=== PATIENT | male | born 1965 | race Caucasian/White ===

== ENCOUNTER 2019-04-08 07:01 | Inpatient (IN) ==
--- NOTE | 2019-03-13 15:45 | PAT Medication Instructions ---
Medication Instructions Date of Service March 13, 2019 Home Medications celecoxib 200 mg capsule 200 mg PO BID 02/21/19 [History Confirmed 03/05/19] acetaminophen 1,000 mg PO Q8H PRN 03/05/19 [History Confirmed 03/05/19] bupropion HCl [Wellbutrin XL] 150 mg PO BID 03/05/19 [History Confirmed 03/05/19] kueeslqj-edq-gvwrj-vit K-lycop [Men's Multivitamin] 1 tab PO HS omega 0-xku-vga-fish oil [Fish Oil] 1 cap PO HS 03/05/19 [History Confirmed 03/05/19] sildenafil 40 mg PO UD PRN 03/05/19 [History Confirmed 03/05/19] tadalafil [Cialis] 7.5 mg PO DAILY PRN 03/05/19 [History Confirmed 03/05/19] tramadol 50 mg PO TID PRN 03/05/19 [History Confirmed 03/05/19] ASK your surgeon for instructions celecoxib 200 mg capsule 200 mg PO BID 02/21/19 [History Confirmed 03/05/19] STOP taking 2 weeks before surgery (or as soon as possible if surgery is within 2 weeks) omega 7-ogw-zik-fish oil [Fish Oil] 1 cap PO HS 03/05/19 [History Confirmed 03/05/19] DO NOT take the morning of surgery sildenafil 40 mg PO UD PRN 03/05/19 [History Confirmed 03/05/19] tadalafil [Cialis] 7.5 mg PO DAILY PRN 03/05/19 [History Confirmed 03/05/19] Take morning of surgery With a small sip of water, OTHERWISE NOTHING TO EAT OR DRINK AFTER MIDNIGHT: acetaminophen 1,000 mg PO Q8H PRN (okay to take up to 4 hours prior to surgery if needed) bupropion HCl [Wellbutrin XL] 150 mg PO BID 03/05/19 [History Confirmed 03/05/19] tramadol 50 mg PO TID PRN (okay to take up to 4 hours prior to surgery if needed) Take evening before surgery acetaminophen 1,000 mg PO Q8H PRN (if needed) bupropion HCl [Wellbutrin XL] 150 mg PO BID 03/05/19 [History Confirmed 03/05/19] ksknjnop-xbj-vbgmv-vit K-lycop [Men's Multivitamin] 1 tab PO HS sildenafil (pulm.hypertension) 40 mg PO UD PRN (if needed) tadalafil [Cialis] 7.5 mg PO DAILY PRN (if needed) tramadol 50 mg PO TID PRN (if needed) Other Notes If you have any questions please call us at [phone] or [phone] or [phone] or [phone]
--- NOTE | 2019-03-14 10:26 | Anesthesiology Consultation ---
Date of Service March 14, 2019 Assessment & Plan (1) Encounter for pre-operative examination: - Awaiting review preop testing (labs, EKG, CXR). - Awaiting surgeon-ordered PCP preop evaluation scheduled 03/19 (Dr. Shayne Longoria). Chart Review Chart Review: Patient seen in Pre Admission Testing Teaching & Discussion Pre-Anesthesia Teaching/Discussion Notes: Instructed NPO after midnight before surgery,except medications with 15 cc of water. Medication instructions provided according to the PAT guidelines. History Surgery Operation Date: 04/08/19 12:00 Proposed Procedures p Right Anterior Total Hip Arthroplasty - Remberto Villatoro DO Height/Weight Height: 5 ft 9 in Weight: 115.8 kg Allergies Allergy/AdvReac Type Severity Reaction Status Date / Time No Known Allergies Allergy Verified 03/05/19 08:57 Medications Home Medications Medication Instructions Recorded Confirmed Last Taken celecoxib 200 mg capsule 200 mg PO BID 02/21/19 03/05/19 Unknown acetaminophen 1,000 mg PO Q8H PRN 03/05/19 03/05/19 Unknown bupropion HCl [Wellbutrin XL] 150 mg PO BID 03/05/19 03/05/19 Unknown sxzcxivj-ffi-drwxm-vit K-lycop 1 tab PO HS 03/05/19 03/05/19 Unknown [Men's Multivitamin] omega 7-bzq-ras-fish oil [Fish Oil] 1 cap PO HS 03/05/19 03/05/19 Unknown tadalafil [Cialis] 7.5 mg PO DAILY PRN 03/05/19 03/05/19 Unknown tramadol 50 mg PO TID PRN 03/05/19 03/05/19 Unknown sildenafil 1 tab PO UD PRN 03/13/19 03/13/19 Unknown Past Medical History Medical History Bulging disc cervical Gout Kidney calculi Obesity SYEDA (obstructive sleep apnea) CPAP Osteoarthritis Exercise / Class Metabolic Activity II 4-5 Yardwork/Stairs/Walk up hill (one flight of stairs (no chest pain/no sob), uses cane PRN increasing hip pain) Past Family History Family History Father Family hx of colon cancer Past Surgical History Surgical History History of colonoscopy History of cystoscopy MULTIPLE History of knee surgery RT KNEE BONE CHIP REPAIR History of lithotripsy MULTIPLE [place] teeth removed Past Anesthesia History No Hx of Anesthesia Complications and No Family Hx of Anesthesia Complications History of PONV No Hx of PONV and No Hx of Motion Sickness Social History Smoking Status: Never smoker Do You Dip or Chew Tobacco: No Hx Alcohol Use: Yes Alcohol type: beer, wine and hard liquor alcohol intake frequency: a few times a week Hx Substance Use: No substance use type: does not use Review of Systems Patient denies chest pain, shortness of breath, dyspnea on exertion, cough, wheezing, palpitations. Physical Exam Vital Signs VITALS BP 137/84 P 60 TEMP 98.2 SP02 97%RA RESP 16 PHYSICAL Full neck and c-spine range of motion. Full TMJ range of motion. TMD 3.5 finger breaths Mallampati Score 2 Dentition: intact, several crowns Lungs: clear throughout to auscultation Cardiac: regular rate and rhythm, no murmurs noted Spine: normal Carotid arteries: negative bruit Extremities: no edema
--- NOTE | 2019-03-14 12:03 | XRay Report ---
XR chest Pre-admission PA/Lat CLINICAL HISTORY: Preoperative chest COMPARISON STUDY: No previous studies for comparison. FINDINGS: The heart is at the upper limits of normal in size. There is no failure. There is no focal pulmonary consolidation. There are no pleural effusions. Degenerative changes are present within the dorsal spine with ankylosis.[ IMPRESSION: No active disease in the chest. Electronically signed by: Vijay Zarco M.D. 03/14/2019 12:01 PM
[2019-03-14 12:41] LABS: Basophils # (auto) 0.01 K/uL (0-0.2); Basophils % (auto) 0.2 %; Eosinophils # (auto) 0.08 K/uL (0-0.5); Eosinophils % (auto) 1.6 %; Hematocrit (blood only) 43.3 % (42-52); Hemoglobin 14.5 g/dL (14.0-18.0); Immature Granulocytes # (auto) 0.01 K/uL (0.00-0.02); Immature Granulocytes % (auto) 0.2 %; Lymphocytes # (auto) 1.31 K/uL (1.2-3.4); Lymphocytes % (auto) 26.8 %; Mean Corpuscular Hemoglobin 31.9 pg (25-34); Mean Corpuscular Hgb Conc 33.5 g/dL (32-36); Mean Corpuscular Volume 95.4 fL (80-100); Mean Platelet Volume 10.1 fL (7.4-10.4); Monocytes # (auto) 0.38 K/uL (0.11-0.59); Monocytes % (auto) 7.8 %; Neutrophils % (auto) 63.4 %; Platelet Count 244 K/uL (130-400); RDW Coefficient of Variation 13.6 % (11.5-14.5); RDW Standard Deviation 47.2 fL (36.4-46.3); Red Blood Count 4.54 M/uL (4.7-6.1); White Blood Count 4.89 K/uL (4.8-10.8)
[2019-03-14 13:02] LABS: Partial Thromboplastin Time 27.3 Seconds (21.0-31.0); Prothrombin Time 10.3 Seconds (9.0-12.0)
[2019-03-14 13:04] LABS: BUN Creatinine Ratio 20.5 (10-20); Calcium 9.1 mg/dl (8.5-10.1); Creatinine Clr Calc Pharmacy 132.3 ml/min; Est GFR (African American) 117.8; Est GFR (Non-African American) 101.7; Potassium 3.7 mmol/L (3.5-5.1)
[2019-03-14 13:05] LABS: Appearance Urine Clear (Clear); Bacteria Urine Automated Negative (Negative); Bilirubin Urine Negative (Negative); Blood Urine 1+ (Negative); Cast Urine Automated 0 /lpf (0-5); Color Urine Yellow; Epithelial Cell Urine Auto 0-5 /lpf (0-5); Glucose Urine UA Negative (Negative); Ketones Urine Negative (Negative); Leukocyte Esterase Urine Negative (Negative); Nitrite Urine Negative (Negative); Protein Urine Negative (Negative); Urobilinogen Urine Negative (Negative); pH Urine 6.5 (4.5-7.5)
--- NOTE | 2019-03-27 08:38 | Consultation Report ---
DATE OF CONSULTATION: 04/08/2019 A 53-year-old male scheduled to undergo right total hip arthroplasty with an anterior approach on 04/08/2019. HISTORY OF PRESENT ILLNESS: The patient is with severe osteoarthritis. Progressive disease. Multiple joints involved. The first procedure recommended was a right total hip arthroplasty. This is scheduled as noted above. Otherwise, his medical problems include: 1. Obstructive sleep apnea. This has been diagnosed back in 2005. He does use a CPAP. He recently had a repeat sleep study. He needs a pressure of 9 cm of water. 2. Nephrolithiasis. He has had multiple episodes over the years. He has had multiple lithotripsy procedures. 3. He has a history of vasectomy many years ago. SOCIAL HISTORY: He is . This is his second marriage. He has 3 children from his first marriage. He never smoked. He does drink beer maybe twice a week, not excessively. Occasional wine. No drugs. No excessive coffee, tea or soft drinks. He is a registered nurse. FAMILY HISTORY: His mother is 87, has severe dementia. Father of colon cancer. He has 6 siblings. History is significant for colonic polyps. Children doing well. No history of any prostate cancer. ALLERGIES: None. CURRENT MEDICATIONS: Include: 1. Celebrex 200 mg daily. 2. Tramadol 50 mg tablets, which she takes on occasion for pain. 3. Sildenafil 20 mg tablets that he uses for his erectile dysfunction. REVIEW OF SYSTEMS: Denies any headache or dizziness or lightheadedness. No earache, sore throat or neck pain. Denied any chest pain, pressure or tightness. No shortness of breath. No cough. No abdominal pain. No nausea, no vomiting. No problem with his bowel movements. No problem urinating. He does have pain in his back and joints related to his osteoarthritis. PHYSICAL EXAMINATION: GENERAL: Well developed, in no distress. Weight 252 pounds, height 68 inches. VITAL SIGNS: Blood pressure 130/82, pulse 60, temperature 98.2. SKIN: Warm and dry without any rash. HEENT: Trifocal correction. No mucosal abnormalities noted. NECK: Supple without adenopathy or thyromegaly. No JVD. Normal carotid pulses. No carotid bruit. CHEST: Normal. HEART: Regular heart sounds. No murmur, rub or gallop. LUNGS: Clear. Normal breath sounds. ABDOMEN: Soft, nontender without organomegaly or masses. BACK: No spinal tenderness. EXTREMITIES: Osteoarthritic changes. No edema, no clubbing, no cyanosis. Good pulses. He does have a callus on the lateral aspect of his right foot. NEUROLOGIC: He is alert and oriented without deficit. DIAGNOSTIC DATA: Preoperative testing including chest x-ray which was normal. His electrocardiogram was normal except for minimal sinus bradycardia at 58 beats per minute. LABORATORY DATA: His blood type was O positive. CBC was normal. PT and PTT were normal. His PRP was all completely unremarkable. His urinalysis showed 1+ blood, 10-30 rbc's. Negative leukocyte esterase. The microhematuria is thought to be related to his nephrolithiasis. ASSESSMENT: 1. Preoperative evaluation. The patient is scheduled to undergo a right total hip arthroplasty with an anterior approach. 2. Nephrolithiasis. 3. Obstructive sleep apnea. 4. Obesity. PLAN: 1. He will continue the same medications. 2. All his laboratory tests were reviewed. 3. The patient should be able to undergo his anticipated surgery without any problem. I do not see any contraindication. DUNIA
--- NOTE | 2019-04-07 12:48 | History & Physical Report ---
Date of Service April 07, 2019 Assessment & Plan (1) Degenerative joint disease of right hip: I have indicated the patient for right anterior total hip replacement. The risks, benefits and complications of surgery were explained to the patient which include but not limited to infection, acute blood loss, DVT/PE, injury to nerves, vessels, bone, soft tissue, arthrofibrosis, chronic pain, failure of the prosthesis, hip dislocation, leg length discrepancy, need for additional surgery, cardiac and pulmonary events and . The patient wished to proceed with surgery and informed consent was obtained at this time. We will plan for ASA BID post-operatively for DVT prophylaxis. Upon discharge the patient will be discharged home with home health services. Appropriate clearances by PCP were obtained. History of Present Illness Chief Complaint: Right hip pain/djd Primary Care Provider: Alejandro Grover MD The patient is a 53 year old male who presents with complaints of severe right hip pain and DJD. The patient has failed outpatient conservative treatments to this point which included NSAIDs, IA corticosteroid injection of the hip, home exercise/walking program. The patient's pain and limited function have progressed to the point where they severely hinder their activities of daily living and they no longer tolerate exercise programs. They are requesting to proceed with total hip replacement surgery. Allergies Allergy/AdvReac Type Severity Reaction Status Date / Time No Known Allergies Allergy Verified 03/05/19 08:57 Home Medications Home Medications Medication Instructions Recorded Confirmed Type celecoxib 200 mg capsule 200 mg PO BID 02/21/19 03/05/19 History acetaminophen 1,000 mg PO Q8H PRN 03/05/19 03/05/19 History bupropion HCl [Wellbutrin XL] 150 mg PO BID 03/05/19 03/05/19 History mgbciafe-swa-bnchf-vit K-lycop 1 tab PO HS 03/05/19 03/05/19 History [Men's Multivitamin] omega 7-jfa-lye-fish oil [Fish Oil] 1 cap PO HS 03/05/19 03/05/19 History tadalafil [Cialis] 7.5 mg PO DAILY PRN 03/05/19 03/05/19 History tramadol 50 mg PO TID PRN 03/05/19 03/05/19 History sildenafil 1 tab PO UD PRN 03/13/19 03/13/19 History CPAP Machine #1 ea 03/21/19 Rx Past Med/Surg History Medical History Bulging disc cervical Gout Kidney calculi Obesity SYEDA (obstructive sleep apnea) CPAP Osteoarthritis Surgical History History of colonoscopy History of cystoscopy MULTIPLE History of knee surgery RT KNEE BONE CHIP REPAIR History of lithotripsy MULTIPLE [place] teeth removed Family History Father Family hx of colon cancer Social History Preferred Language: Citizen Of [place] Communication Ability: Effective Finish Cleaner Required: No Beliefs That Will Affect Care: None Current Living Situation: Spouse Other Information That Helps Us Care for You: No Feels Safe at Home: Yes Safety Concerns: Feels Safe At This Time Smoking Status: Never smoker Do You Dip or Chew Tobacco: No ; Second Hand Exposure: No ; Tobacco Cessation Education Requested by Patient: No Hx Alcohol Use: Yes Alcohol type: beer, wine and hard liquor Hx Substance Use: No Review of Systems Review of Systems: All systems reviewed & are unremarkable except as noted in HPI & below Constitutional: as per Subjective / HPI Physical Exam Physical Exam: RLE NVSI +EHL/FHL/TA/GS SILT grossly, +2 DP pulse, compartments soft NT, limited painful ROM of the hip, antalgic gait. Constitutional: WD/WN, vitals as above Eyes: PERRL, conjunctivae normal, anicteric sclerae ENMT: external ear and nose normal, oropharynx normal Neck: trachea midline, no thyromegaly Respiratory: normal respiratory effort, lungs clear to auscultation Cardiovascular: RRR, no murmur, no edema Gastrointestinal (Abdomen): normal bowel sounds, soft, nontender, no hepatosplenomegaly Musculoskeletal: no cyanosis or clubbing, extremities motor strength 5/5 Skin: no rashes, warm and dry Neurologic: patellar DTR's 2+ bilat, sensation intact Psychiatric: A+Ox3, euthymic affect Lymphatic: no cervical or axillary lymphadenopathy Results & Data Diagnostic Findings Multiple views of the hip demonstrates severe DJD with complete loss of the joint space. +osteophytes, +sclerosis, +subchondral cysts.
[~2019-04-08 07:01] MED LIST: ACETAMINOPHEN 500 MG TAB PO SCH; BUPIVACAINE 0.5 % 5 MG/1 ML PF 10ML VIAL ONE; CEFAZOLIN 2000MG 2,000 MG/15 ML SYR IV SCH; CeleBREX 200 MG CAP PO SCH; DEXAMETHASONE SOD INJ 4 MG/ML VIAL ONE; FAMOTIDINE 20 MG TAB PO SCH; GABAPENTIN 900 MG DOSE PO SCH; LR 15ML/HR IV SCH; METOCLOPRAMIDE HCL 10 MG TABLET PO SCH; MIDAZOLAM HCL 1 MG/ML 2ML VIAL ONE; ONDANSETRON INJ 2 MG/ML 2 ML VIAL ONE; PROPOFOL IV EMULSION 10 MG/ML 20 ML VIAL IV ONE; ROPIVACAINE 0.5% HCL/PF 150 MG, BUPIVACAINE 0.5% MPF 30 ML, EPINEPHrine 30MG/30ML (OR U... INSTIL SCH; TRANEXAMIC ACID 1,000 MG **IV Intra-op IV SCH; TRANEXAMIC ACID 1,000 MG **IV Pre-op IV SCH; dexAMETHasone 4 MG TAB PO SCH; fentaNYL citrate 100 MCG/2 ML VIAL ONE
--- NOTE | 2019-04-08 07:32 | History & Physical Bridge Note ---
Date of Service April 08, 2019 History & Physical Bridge Note I have examined the patient, reviewed the History & Physical and in the interval since the performance of the History & Physical I have noted the following changes of clinical significance: no changes noted
[2019-04-08] MEDS ORDERED: BACITRACIN INJ 50,000 UNIT VIAL ONE (09:28)
[2019-04-08] MEDS ORDERED: ORTHO JOINT ANESTHETIC ONE (09:28)
[2019-04-08] MEDS ORDERED: ePHEDrine sulfate 50 MG/ML AMP IV PRN (11:05)
[2019-04-08] MEDS ORDERED: ATROPINE SULFATE 0.1 MG/ML 10ML SYR IV PRN (11:05)
[2019-04-08] MEDS ORDERED: PROPOFOL IV EMULSION 10 MG/ML 20 ML VIAL IV ONE ×3 (11:27→12:38)
[2019-04-08] MEDS ORDERED: TRANEXAMIC ACID / 0.7% NACL 1000MG/100ML BAG IV ONE (12:49)
--- NOTE | 2019-04-08 12:56 | Post Operative Brief Note ---
Immediate Post Op Note v1 Date of Surgery April 08, 2019 Pre & Post Diagnosis Operation Date: 04/08/19 09:30 Pre-Op Diagnosis: Unilateral Primary Osteoarthritis, Right Hip Post-Op Diagnosis: Unilateral Primary Osteoarthritis, Right Hip I identified the patient and participated in the time-out.: Yes Procedure Operation Date: 04/08/19 09:30 Actual Procedures p Right Anterior Total Hip Arthroplasty(Right) - Remberto Villatoro DO Surgeon Remberto Villatoro DO Pencil Maker Vito Oneil Estimated Blood Loss 125 Findings Consistent with Post-Op Diagnosis Fluids 1400 cc LR Specimens femoral head Anesthesia Type Spinal MAC Complications none Disposition Disposition: Recovery Room Overlapping Procedure I was present for: the critical portions of procedure. I was immediately available: during the entire case. Back up surgeon: was not required during procedure.
--- NOTE | 2019-04-08 13:02 | Operative Report ---
Post Operative Report Pre & Post Diagnosis Operation Date: 04/08/19 09:30 Pre-Op Diagnosis: Unilateral Primary Osteoarthritis, Right Hip Post-Op Diagnosis: Unilateral Primary Osteoarthritis, Right Hip I identified the patient and participated in the time-out.: Yes Procedure Operation Date: 04/08/19 09:30 Actual Procedures p Right Anterior Total Hip Arthroplasty(Right) - Remberto Villatoro DO Surgeon Remberto Villatoro DO Burnisher [employer] Bumper Vito Oneil Estimated Blood Loss 125 Findings Consistent with Post-Op Diagnosis Fluids 1400 cc LR Specimens Femoral head Anesthesia Type Spinal MAC Complications none Disposition Disposition: Recovery Room Indications The patient is a 53-year-old male who presents with severe progressive right hip DJD who has failed outpatient conservative treatments. I indicated the patient for a total hip replacement and the risks and benefits were explained in detail which included but not limited to infection, bleeding, blood clot, damage to surrounding bone, nerves, vessels, soft tissue, hip dislocation, failure of the prosthesis, leg length discrepancy, need for additional surgery and . The patient agreed to proceed with replacement of the hip and informed consent was obtained. Appropriate clearances were obtained. Description of Procedure COMPONENTS USED: [employer] hip system: Acetabulum size 54, femur size 6 standard offset, femoral head 36-3, liner [id number], acetabular screw 25 mm x 1. DESCRIPTION OF PROCEDURE: Following satisfactory spinal anesthesia, the patient was placed supine on the OR table. The left leg was placed in the well leg [place] and the right leg in the traction device. The right leg was prepared with ChloraPrep and draped sterilely. A surgical timeout was performed, patient identified and site jonnathan verified. Appropriate antibiotics were given. A standard anterior approach in the interval between the sartorius and tensor muscles was performed. Dissection was carried down through subcutaneous tissues. Electrocautery was utilized for hemostasis. Circumflex femoral vessels were identified, tied and ligated. The anterior capsular fat pad was removed and the capsulotomy was performed revealing the arthritic femoral neck and head. A femoral neck cut was made with reciprocating saw and the bone fragments removed. The acetabular self-retraining retractor was placed. Acetabular reaming was completed under fluoroscopic guidance, a 54 shell was impacted into an anatomic position and secured with a dome screw. Local ane sthetic was placed and following irrigation, the polyethylene liner was placed. The femur was placed into position of external rotation, extension and adduction. Femoral canal was prepared up to the size 6 standard offset. Trial reduction with a -3 neck length head showed good soft tissue tension, leg lengths restored, and good fit and fill of the proximal canal using fluoroscopic landmarks. The hip was dislocated. The trial component was removed. The final implant was placed. The hip was irrigated with sterile saline solution and reduced. A Betadine soak was performed. After 3 minutes, the hip was once more irrigated with copious sterile saline solution with bacitracin. Bhavya-incisional soft tissue was injected utilizing [place] [employer] which includes a combination of Ropivicaine 0.5% 150mg, Bupivicaine 0.5%/Epinephrine 1:200,000 30ml, Toradol 30mg, Dexamethasone 4mg, Ketamine 10mg, Clonidine 100mcg and NSS 30ml solution. The capsule was then closed with 1-0 Vicryl interrupted figure of eight sutures. The fascia was closed with a running suture of #1 Vicryl, the subcutaneous tissues with 2-0 Vicryl and the skin with a running subcuticular stitch of 3-0 V-Loc. Dermabond prineo and a dry dressing were applied. The patient tolerated the procedure well and was transported to PACU in stable condition. Due to the complex nature of the procedure, the entire surgery was performed with the operational assistance of Vito Oneil PA-C. The front office assistant, under direct supervision, was involved in the actual performance of all aspects of the surgical procedure including patient positioning, hemostasis, tissue retraction, instrument management and wound closure. I attest to the content of the Intraoperative Record and any orders documented therein. Any exceptions are noted below.
--- NOTE | 2019-04-08 13:03 | Fluoroscopy Report ---
FL hip RT 1V CLINICAL HISTORY: RT ANTERIOR TOTAL COMPARISON STUDY: None. FLUOROSCOPY TIME: 53 seconds. FLUOROSCOPIC IMAGES: 2 FINDINGS: These images demonstrate anatomic alignment of the total right hip arthroplasty. There are no unexpected radiopaque foreign bodies. Acetabular screw is noted. Hardware is intact. No fracture i s visualized by fluoroscopy. IMPRESSION: Expected findings following total right hip arthroplasty. Electronically signed by: Rex Marshall M.D. 04/08/2019 1:01 PM
--- NOTE | 2019-04-08 13:55 | Anesthesiology Progress Note ---
Date of Service April 08, 2019 Anesthesia Post Procedure Vital Signs Vital Signs: Temp Pulse Pulse Resp BP Pulse Ox 04/08/19 13:40 62 16 108/65 96 04/08/19 13:30 74 19 112/66 99 04/08/19 13:22 36.8 C 64 15 115/71 98 04/08/19 07:45 36.8 C 79 18 149/88 H 98 Transfer of Care Handoff Completed per policy Notes Mental Status: alert / awake / arousable and participated in evaluation Patient Amnestic to Procedure: Yes Nausea / Vomiting: adequately controlled Pain: adequately controlled Airway Patency, RR, SpO2: stable & adequate BP & HR: stable & adequate Hydration State: stable & adequate Neuraxial Anesthesia: was administered and sensory block is resolving Anesthetic Complications: no major complications apparent
--- NOTE | 2019-04-08 14:10 | XRay Report ---
XR hip 1V RT w pelvis CLINICAL HISTORY: IN PACU - A/P PELVIS and LATERAL HIP COMPARISON: None. DISCUSSION: Anatomic alignment posttotal right hip arthroplasty. Could contact between prosthetic and underlying bone. Expected postoperative soft tissue changes IMPRESSION: Anatomic alignment posttotal right hip arthroplasty. The above report was generated using voice recognition software. It may contain grammatical, syntax or spelling errors. Electronically signed by: Otf Mckeon M.D. 04/08/2019 2:08 PM
[2019-04-08] MEDS ORDERED: bisacodyL 10 MG SUPP PR PRN (14:16)
[2019-04-08] MEDS ORDERED: HYDROmorphone INJ 0.5 MG/0.5 ML SYR IV PRN (14:16)
[2019-04-08] MEDS ORDERED: MAGNESIUM HYDROXIDE SUSP 30 ML UDC PO PRN (14:16)
[2019-04-08] MEDS ORDERED: SODIUM CHLORIDE 0.9% 1000ML 1,000 ML IV SCH (14:16)
[2019-04-08] MEDS ORDERED: ONDANSETRON INJ 2 MG/ML 2 ML VIAL IV PRN (14:16)
[2019-04-08] MEDS ORDERED: METOCLOPRAMIDE HCL INJ 5 MG/ML 2 ML VIAL IV PRN (14:16)
[2019-04-08] MEDS ORDERED: NALOXONE HCL 0.4 MG/1 ML VIAL/CARP IV PRN (14:16)
[2019-04-08] MEDS: KETOROLAC TROMETHAMINE 15 MG/ML VIAL IV SCH ×2 (15:15→21:21)
[2019-04-08] MEDS: ACETAMINOPHEN 500 MG TAB PO SCH ×2 (15:15→21:18)
[2019-04-08] MEDS: OXYCODONE HCL IR 5 MG TAB (IMMEDIATE RELEASE) PO PRN ×2 (15:53→23:50)
--- NOTE | 2019-04-08 18:35 | Orthopedic Progress Note ---
Date of Service April 08, 2019 Assessment & Plan (1) Degenerative joint disease of right hip: s/p R anterior DAVID -ancef x 24 -DVT ppx: SCDs, TEDs, ASA BID -WBAT RLE -PT/OT -PO XR demonstrates a well aligned well fixed prothesis without fracture dislocation -am labs -DC planning Subjective Post Operative Progress Note Patient seen sitting up in bed, comfortable, denies complaints, pain well controlled, no acute issues. Review of Systems Review of Systems: All systems reviewed & are unremarkable except as noted in HPI & below Constitutional: as per Subjective / HPI Physical Exam Physical Exam: RLE NVSI +EHL/FHL/TA/GS SILT grossly, +2 DP pulse, compartments soft NT, dressing cdi. Constitutional: WD/WN, vitals as above Results & Data Vital Signs (Past 12 Hours) Vital Signs Temp Pulse Pulse Resp BP BP Pulse Ox 04/08/19 17:21 36.5 C 81 18 132/72 97 04/08/19 16:05 37.0 C 83 18 162/82 H 98 04/08/19 15:05 37.0 C 77 18 147/77 H 96 04/08/19 14:36 36.3 C L 67 18 122/80 98 04/08/19 14:05 36.5 C 68 18 129/80 97 04/08/19 13:50 36.5 C 62 17 146/95 H 98 04/08/19 13:40 62 16 108/65 96 04/08/19 13:30 74 19 112/66 99 04/08/19 13:22 36.8 C 64 15 115/71 98 04/08/19 07:45 36.8 C 79 18 149/88 H 98
[2019-04-08] MEDS: CEFAZOLIN 2000MG 2,000 MG/15 ML SYR IV SCH (18:47)
[2019-04-08] MEDS ORDERED: SENNA 8.6 MG TAB PO SCH (21:00)
[2019-04-08] MEDS: BuPROPion SR 150 MG TABCR PO SCH (21:18)
[2019-04-08] MEDS: DOCUSATE SODIUM 100 MG CAP PO SCH (21:18)
[2019-04-09] MEDS: KETOROLAC TROMETHAMINE 15 MG/ML VIAL IV SCH ×2 (02:54→08:44)
[2019-04-09] MEDS: CEFAZOLIN 2000MG 2,000 MG/15 ML SYR IV SCH (02:54)
[2019-04-09 05:19] LABS: Hematocrit (blood only) 37.3 % (42-52); Hemoglobin 12.6 g/dL (14.0-18.0); Immature Granulocytes # (auto) 0.02 K/uL (0.00-0.02); Immature Granulocytes % (auto) 0.2 %; Lymphocytes # (auto) 0.72 K/uL (1.2-3.4); Mean Corpuscular Hemoglobin 31.7 pg (25-34); Mean Corpuscular Hgb Conc 33.8 g/dL (32-36); Mean Corpuscular Volume 93.7 fL (80-100); Mean Platelet Volume 10.2 fL (7.4-10.4); Monocytes # (auto) 0.81 K/uL (0.11-0.59); Monocytes % (auto) 7.9 %; Neutrophils # (auto) 8.72 K/uL (1.4-6.5); Neutrophils % (auto) 84.9 %; Platelet Count 231 K/uL (130-400); RDW Coefficient of Variation 12.8 % (11.5-14.5); RDW Standard Deviation 43.9 fL (36.4-46.3); Red Blood Count 3.98 M/uL (4.7-6.1); White Blood Count 10.27 K/uL (4.8-10.8)
[2019-04-09 05:42] LABS: BUN Creatinine Ratio 24.2 (10-20); Calcium 8.3 mg/dl (8.5-10.1); Creatinine Clr Calc Pharmacy 114.5 ml/min; Est GFR (African American) 106.2; Est GFR (Non-African American) 91.7; Potassium 3.8 mmol/L (3.5-5.1)
[2019-04-09] MEDS: ACETAMINOPHEN 500 MG TAB PO SCH (05:44)
--- NOTE | 2019-04-09 07:49 | Orthopedic Progress Note ---
Date of Service April 09, 2019 Assessment & Plan (1) Degenerative joint disease of right hip: s/p R anterior DAVID POD#1 -ancef x 24 -DVT ppx: SCDs, TEDs, ASA BID -WBAT RLE -PT/OT -PO XR demonstrates a well aligned well fixed prothesis without fracture dislocation -am labs: hgb 12.6 -DC planning home with HH Subjective Post Operative Progress Note Patient seen sitting up in bed, comfortable, denies complaints, pain well controlled, no acute issues. Denies F/C/N/V/SOP/CP Review of Systems Review of Systems: All systems reviewed & are unremarkable except as noted in HPI & below Constitutional: as per Subjective / HPI Physical Exam Physical Exam: RLE NVSI +EHL/FHL/TA/GS SILT grossly, +2 DP pulse, compartments soft NT, dressing cdi. Constitutional: WD/WN, vitals as above Results & Data Vital Signs (Past 12 Hours) Vital Signs Temp Pulse Resp BP BP Pulse Ox 04/09/19 02:55 36.4 C L 68 16 127/56 L 97 04/08/19 23:01 37.1 C 76 16 125/75 96 Laboratory Results 04/09/19 04/09/19 Range/Units 04:46 04:46 WBC 10.27 (4.8-10.8) K/uL RBC 3.98 L (4.7-6.1) M/uL Hgb 12.6 L (14.0-18.0) g/dL Hct 37.3 L (42-52) % MCV 93.7 (80-100) fL MCH 31.7 (25-34) pg MCHC 33.8 (32-36) g/dL RDW Std Deviation 43.9 (36.4-46.3) fL RDW Coeff of Estiven 12.8 (11.5-14.5) % Plt Count 231 (130-400) K/uL MPV 10.2 (7.4-10.4) fL Immature Gran % (Auto) 0.2 % Neut % (Auto) 84.9 % Lymph % (Auto) 7.0 % [place] % (Auto) 7.9 % Eos % (Auto) 0.0 % Baso % (Auto) 0.0 % Immature Gran # (Auto) 0.02 (0.00-0.02) K/uL Neut # (Auto) 8.72 H (1.4-6.5) K/uL Lymph # (Auto) 0.72 L (1.2-3.4) K/uL [place] # (Auto) 0.81 H (0.11-0.59) K/uL Eos # (Auto) 0.00 (0-0.5) K/uL Baso # (Auto) 0.00 (0-0.2) K/uL Sodium 137 (136-145) mmol/L Potassium 3.8 (3.5-5.1) mmol/L Chloride 104 (98-107) mmol/L Carbon Dioxide 29 (21-32) mmol/L Anion Gap 4.0 (3-11) BUN 23 H (7-18) mg/dl Creatinine 0.95 (0.6-1.4) mg/dl Est Cr Clr Drug Dosing 114.5 ml/min Est GFR ( Amer) 106.2 Est GFR (Non-Af Amer) 91.7 BUN/Creatinine Ratio 24.2 H (10-20) Glucose 189 H (70-99) mg/dl Calcium 8.3 L (8.5-10.1) mg/dl
--- NOTE | 2019-04-09 08:15 | Anesthesiology Progress Note ---
Date of Service April 09, 2019 Anesthesia Post Procedure Vital Signs Vital Signs: Temp Pulse Pulse Resp BP BP Pulse Ox 04/09/19 08:05 36.8 C 66 12 146/87 H 99 04/09/19 02:55 36.4 C L 68 16 127/56 L 97 04/08/19 23:01 37.1 C 76 16 125/75 96 04/08/19 17:21 36.5 C 81 18 132/72 97 04/08/19 16:05 37.0 C 83 18 162/82 H 98 04/08/19 15:05 37.0 C 77 18 147/77 H 96 04/08/19 14:36 36.3 C L 67 18 122/80 98 04/08/19 14:05 36.5 C 68 18 129/80 97 04/08/19 13:50 36.5 C 62 17 146/95 H 98 04/08/19 13:40 62 16 108/65 96 04/08/19 13:30 74 19 112/66 99 04/08/19 13:22 36.8 C 64 15 115/71 98 Pain Intensity Right Hip: Pain Intensity: 6 Notes Mental Status: alert / awake / arousable and participated in evaluation Patient Amnestic to Procedure: Yes Nausea / Vomiting: adequately controlled Pain: adequately controlled Airway Patency, RR, SpO2: stable & adequate BP & HR: stable & adequate Hydration State: stable & adequate Neuraxial Anesthesia: was administered and sensory block resolved Anesthetic Complications: no major complications apparent
[2019-04-09] MEDS: DOCUSATE SODIUM 100 MG CAP PO SCH (08:32)
[2019-04-09] MEDS: BuPROPion SR 150 MG TABCR PO SCH (08:33)
[2019-04-09] MEDS: OXYCODONE HCL IR 5 MG TAB (IMMEDIATE RELEASE) PO PRN (08:47)
[2019-04-09] MEDS ORDERED: MULTIVITAMIN TAB PO SCH (09:00)
[2019-04-09] MEDS ORDERED: ASPIRIN 325 MG ECTAB PO SCH (09:00)
[2019-04-09] MEDS ORDERED: CeleBREX 200 MG CAP PO SCH ×2 (10:00→14:00)
--- NOTE | 2019-04-10 21:28 | Discharge Summary ---
Date of Service April 10, 2019 Admission HPI Per Admitting Provider The patient is a 53 year old male who presents with complaints of severe right hip pain and DJD. The patient has failed outpatient conservative treatments to this point which included NSAIDs, IA corticosteroid injection of the hip, home exercise/walking program. The patient's pain and limited function have progressed to the point where they severely hinder their activities of daily living and they no longer tolerate exercise programs. They are requesting to proceed with total hip replacement surgery. Principal Diagnosis Right anterior total hip replacement Discharge Exam RLE NVSI +EHL/FHL/TA/GS SILT grossly, +2 DP pulse, compartments soft NT, dressing cdi. Constitutional WD/WN, vitals as above Discharge Data Allergies Allergy/AdvReac Type Severity Reaction Status Date / Time No Known Allergies Allergy Verified 04/08/19 07:41 Consultations 04/09/19 08:00 Consult Case Management - Discharge Planning Routine Procedures Performed Operation Date: 04/08/19 09:30 Actual Procedures p Right Anterior Total Hip Arthroplasty(Right) - Remberto Villatoro DO Ordered Studies 04/08/19 09:30 FL fluoroscopy <1hr Routine FL hip RT 1V Routine Hospital Course (1) Degenerative joint disease of right hip: The patient is a 53 -year-old male who presents with long standing history of severe right hip DJD and failed outpatient conservative treatments. The patient's symptoms have progressed to the point where it has been difficult to perform even normal activities of daily living. I indicated the patient for a right anterior total hip arthroplasty, the risks, benefits and complications of the procedure include but not limited to infection, bleeding, damage to bone, nerves, vessels, surrounding soft tissue, may develop blood clots, loss of function, leg length discrepancy, dislocation, failure of the components, loosening of the components, the need for additional surgery and . The patient wished to proceed with surgery at this time and informed consent was obtained. Hospital Course: On 04/08/19 the patient was taken to the operating room, adequate anesthesia administered and underwent a right anterior total hip arthroplasty. The patient tolerated the procedure well and was taken to the PACU in stable condition. Post-operatively the patient was started on a DVT ppx medication and given appropriate IV antibiotics. Consults were placed to physical therapy, occupational therapy and case management. On POD#1, the patient did well overnight and their pain was well controlled. Labs were drawn and the Hgb was 12.6. The patient progressed well with PT. Dressings were changed at this time and the incision was clean, dry and intact. The patients hospital stay was relatively uneventful and they were deemed stable by the orthopedic team and consultants to be discharged home with HH on 04/09/19. Discharge Instructions: Upon discharge the patient may weight bear as tolerates through their operative extremity. They were instructed to keep the incision clean and dry at all times. The patient may shower but should not submerge the incision, avoid bathing, pools and hot tubes. The patient was given a script for pain medication and should take as instructed. The patient was given a script for DVT ppx 325mg ASA BID and should take as directed. The patient was instructed to not drive or travel for long distances until cleared to do so. If the patient develops any symptoms of fevers, chills, nausea, vomiting, increased redness, swelling, pain or drainage from the surgical site, they should notify the office and/or proceed to the nearest emergency room. The patient should follow up in 10-14 days after surgery for their routine post-operative follow-up appointment and should call the office to confirm the date and time. s/p R anterior DAVID POD#1 -ancef x 24 -DVT ppx: SCDs, TEDs, ASA BID -WBAT RLE -PT/OT -PO XR demonstrates a well aligned well fixed prothesis without fracture dislocation -am labs: hgb 12.6 -DC planning home with Total Time Total Time Spent Total Time Spent (In Minutes): 30 minutes Discharge Plan Discharge Items Patient Disposition: Home - Home Health Services Reason For Visit: Unilateral Primary Osteoarthritis, Right Hip Discharge Diagnosis: Right anterior total hip replacement Condition on Discharge: Good Activity: Per Instructions section Lifting: Wait until after follow-up appointment Bathing: Keep incision dry Bathing Comment: No bathing, pools or hot tubs. Sexual Activity: Wait until after follow-up appointment Exercise/Sports: Wait until after follow-up appointment Driving/Machine Use: No driving Weightbearing: Full weightbearing Non-emergency contact: Primary Care Provider and Surgeon Call non-emergency contact if: you have any medication questions, your symptoms worsen, your pain is not controlled, your pain is worsening, your pain is unusual for you, your pain is concerning for you, you have a fever, your temperature is above 101, your wound has increased redness, your wound has increased drainage and your wound pain has increased Follow-up/Referrals: Alejandro Grover MD [Primary Care Provider] - Diet: Regular Addtl Attending Provider Instructions: ACTIVITY RECOMMENDATIONS: SELF CARE INSTRUCTIONS AFTER TOTAL HIP REPLACEMENT : Direct Anterior Approach Until the incision and soft tissues around your hip have healed, there is a possibility that the hip prosthesis could dislocate. A. Hip flexion ( Up & Down out of chair or steps ) may be difficult. This is normal. B. Numbness in front of the thigh is also normal for a few weeks. C. Use hand rails when walking on stairs. D. Wear low heeled shoes with non-slip soles. E. Be sure that your floors are free of things that could trip you - throw rugs, electrical cords, small objects. Avoid wet and waxed floors, especially with crutches and canes. F. Try to walk several times a day with rest periods between. G. Continue with all the exercises taught to you in the hospital. Again, make walking a part of your daily routine. SPECIAL CARE INSTRUCTIONS: VERY IMPORTANT TO READ AND REVIEW A. You may still be at risk for phlebitis and blood clots. 1. Wear surgical stockings (DARWIN hose) for 2 weeks after surgery to improve circulation and reduce swelling. 2. Take Aspirin 325mg twice daily for 4 weeks or as directed by your doctor. This is your blood thinner. 3. High risk patients may be prescribed a stronger blood thinner if necessary. 4. If you are on Coumadin normally, your family doctor/caregiver assisted living should monitor your blood work. Expect a phone call the day of or the day after bloodwork is drawn to adjust your dosage. B. You must take antibiotics before having dental work, bladder, bowel and other surgery. Your doctor will provide you with a permanent card to carry describing precautions. C. Call [facility] if you have a fever, redness or swelling around the incision, cloudy drainage from incision, or sudden increase in pain in your hip, not relieved by your regular pain medication. D. Please call the office at if you have any concerns or questions about your operation or recovery. * YOU MAY SHOWER, NO TUB BATHS UNTIL CLEARED BY YOUR DOCTOR. - Keep an extra close eye on the top portion of your incision. Be sure to keep clean & dry. * WEAR DARWIN HOSE 20 HOURS PER DAY FOR 2 WEEKS. * YOU MAY PROGRESS FROM A WALKER, TO A CANE, TO INDEPENDENT AT YOUR OWN PACE. * MOST PATIENTS WILL HAVE HOME NURSING FOR THERAPY. IF YOU DECIDE TO DO OUTPATIENT PHYSICAL THERAPY, PLEASE SCHEDULE THIS 3 TIMES PER WEEK. * DERMABOND Prineo- This is a mesh tape dressing that is covered with glue. It should remain in place until the incision is properly healed, usually 10-14 days. This dressing is designed to naturally slough off. You may trim the excess mesh tape as it peels off. Incision may be briefly wet in a shower. Dry immediately by blotting with a clean, dry towel. Do not bath or swim until instructed by your doctor. Do not scratch, rub, or pick at the dressing. Do not apply any topical ointments or lotions until dressing is completely removed and/or instructed by your doctor. There may be a small piece of suture material at one end of your incision. Do not pull or trim this. If it is bothersome or catching on clothing, you may cover it with a band-aid. FOLLOW UP VISIT: If appointment is not already scheduled: Please call [facility] to make a follow-up appointment for 2 weeks after your surgery at . Pending Studies at Discharge: No Stand-Alone Forms: [facility], Smoking Cessation Medications and DC Order Prescriptions: New celecoxib [Celebrex] 200 mg Capsule 200 mg PO BID PRN (Reason: pain) Qty: 28 RF: 0 acetaminophen [Tylenol Extra Strength] 500 mg Tablet 1,000 mg PO Q8 PRN (Reason: pain) Qty: 90 RF: 0 aspirin 325 mg Tablet,Delayed Release (Dr/Ec) 325 mg PO BID 28 Days Qty: 56 RF: 0 oxycodone 5 mg Tablet 5 mg PO Q6H MDD 6 tabs PRN (Reason: pain) Qty: 30 RF: 0 sennosides [Senokot] 8.6 mg Tablet 17.2 mg PO HS PRN (Reason: constipation) Qty: 28 RF: 0 Continued (DME) CPAP Machine Misc See Rx Instructions .ROUTE .MEDSUPPLY Qty: 1 RF: 0 omega 9-uld-hpo-fish oil [Fish Oil] 1,000 mg (120 mg-180 mg) Capsule 1 cap PO HS RF: 0 tadalafil [Cialis] 5 mg tablet 7.5 mg PO DAILY PRN (Reason: NEEDED) RF: 0 Men's Multivitamin 400-20-300 mcg tablet 1 tab PO HS RF: 0 sildenafil 1 tab PO UD PRN (Reason: Erectile Dysfunction) RF: 0 bupropion HCl 150 mg tablet sustained-release 12 hr 150 mg PO BID RF: 0 Discontinued celecoxib [Celebrex] 200 mg capsule 200 mg PO BID RF: 0 tramadol 50 mg Tablet 50 mg PO TID PRN (Reason: Pain) RF: 0 acetaminophen 500 mg Tablet 1,000 mg PO Q8H PRN (Reason: Pain) RF: 0 Discharge Orders: Discharge Order (Routine); Ordered 04/09/19 Ordered By: Remberto Wilson/Other Patient Handouts: Surgery Prevent DVT After Admission Data Admit Date/Time: 04/08/19 13:26 Attending Provider: Remberto Villatoro Admit Provider: Remberto Villatoro Primary Care Provider: Alejandro Grover Other Interventions: Discharge Summary Assessment (RN) Last Done: 04/09/19 09:26 DC Date/Time DO NOT enter until pt leaves facility: 04/09/19 12:03
== END 2019-04-09 12:03 | disposition home health service (06) | DRG 470 ==
LOC: ASU 07:01 → 3E 13:26

== ENCOUNTER 2020-04-07 07:42 | Inpatient (IN) ==
--- NOTE | 2020-03-20 16:09 | PAT Medication Instructions ---
Medication Instructions Date of Service March 20, 2020 Home Medications Medication Instructions Recorded CPAP Machine #1 ea 03/21/19 acetaminophen [Tylenol Extra 1,000 mg PO Q8 PRN #90 tab 04/08/19 Strength] celecoxib [Celebrex] 200 mg PO BID PRN #28 cap 04/08/19 sennosides [Senokot] 17.2 mg PO HS PRN #28 tab 04/08/19 acetaminophen [Tylenol Extra Strength] 1,000 mg PO Q8 PRN celecoxib [Celebrex] 200 mg PO BID PRN sennosides [Senokot] 17.2 mg PO HS PRN tadalafil 20 mg tablet 20 mg PO DAILY PRN clonidine HCl 0.1 mg PO HS methylphenidate HCl [Concerta] 36 mg PO QAM multivitamin 1 tab PO DAILY ASK your surgeon for instructions celecoxib [Celebrex] 200 mg PO BID PRN DO NOT take the morning of surgery tadalafil 20 mg tablet 20 mg PO DAILY PRN methylphenidate HCl [Concerta] 36 mg PO QAM multivitamin 1 tab PO DAILY Take morning of surgery With a small sip of water, OTHERWISE NOTHING TO EAT OR DRINK AFTER MIDNIGHT: acetaminophen [Tylenol Extra Strength] 1,000 mg PO Q8 PRN (okay to take up to 4 hours prior to surgery if needed) Take evening before surgery acetaminophen [Tylenol Extra Strength] 1,000 mg PO Q8 PRN (if needed) sennosides [Senokot] 17.2 mg PO HS PRN (if needed) tadalafil 20 mg tablet 20 mg PO DAILY PRN (if needed) clonidine HCl 0.1 mg PO HS Other Notes If you have any questions please call us at [phone] or [phone] or [phone] or [phone]
--- NOTE | 2020-03-23 16:01 | Anesthesiology Consultation ---
Date of Service March 23, 2020 Assessment & Plan (1) Encounter for pre-operative examination: - Per assessment on 03/23: Travel screen negative. No known COVID-19 positive contacts or current COVID-19 related symptoms. 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 Both use PPE and get routine work COVID testing (most recent negative). Surgeon arranging preop COVID testing. Awaiting results. - S/P Right DAVID: 04/08/19: SAB x 1 attempt at L3-L4 at [facility] - Adult onset ADHD: Patient states he was told not to discontinue Concerta prior to surgery. He states he will check with his ADD provider (sees a specialist) to confirm what they would recommend for preop medication instructions. Reviewed with Dr. Bart zepeda to continue perioperatively if provider recommends this. Anesthesia will need to check with patient AM DOS regarding whether or not Concerta taken. Chart Review Chart Review: Acceptable Risk for Surgery (pending surgeon-ordered PCP clearance) and Patient seen in Pre Admission Testing Teaching & Discussion Pre-Anesthesia Teaching/Discussion Notes: Instructed NPO after midnight before surgery,except medications with 15 cc of water. Medication instructions provided according to the PAT guidelines. History Surgery Operation Date: 04/07/20 12:35 Proposed Procedures p Bilateral Total Knee Arthroplasty - Remberto Villatoro DO Height/Weight Height: 5 ft 8.5 in Weight: 117.7 kg Allergies Allergy/AdvReac Type Severity Reaction Status Date / Time No Known Allergies Allergy Verified 03/20/20 15:12 Medications Home Medications Medication Instructions Recorded Confirmed Last Taken CPAP Machine #1 ea 03/21/19 07/11/19 Unknown acetaminophen [Tylenol Extra 1,000 mg PO Q8 PRN #90 tab 04/08/19 03/20/20 Unknown Strength] celecoxib [Celebrex] 200 mg PO BID PRN #28 cap 04/08/19 03/20/20 Unknown sennosides [Senokot] 17.2 mg PO HS PRN #28 tab 04/08/19 03/20/20 Unknown tadalafil 20 mg tablet 20 mg PO DAILY PRN 07/11/19 03/20/20 Unknown clonidine HCl 0.1 mg PO HS 03/20/20 03/20/20 Unknown methylphenidate HCl [Concerta] 36 mg PO QAM 03/20/20 03/20/20 Unknown multivitamin 1 tab PO DAILY 03/20/20 03/20/20 Unknown Past Medical History Medical History Attention deficit disorder (ADD) Bulging disc cervical History of kidney stones Hx of gout Obesity SYEDA (obstructive sleep apnea) CPAP Osteoarthritis Past Family History Family History Father Colorectal cancer Mother Dementia Breast cancer Other No family history of adverse response to anesthesia Past Surgical History Surgical History History of colonoscopy History of cystoscopy multiple History of knee surgery right knee bone chip repair History of lithotripsy multiple History of total hip arthroplasty Right DAVID: 04/08/19: SAB x 1 attempt at L3-L4 at [facility] [place] teeth removed Social History Smoking Status: Never smoker Do You Dip or Chew Tobacco: No Hx Alcohol Use: Yes Alcohol type: beer and wine alcohol intake frequency: a few times a week Hx Substance Use: No substance use type: does not use Review of Systems Patient denies chest pain, shortness of breath, dyspnea on exertion, joint pain, reflux, cough, wheezing, palpitations. Physical Exam Vital Signs VITALS BP 134/79 P 79 TEMP 98.2 SP02 100%RA RESP 16 PHYSICAL Full neck and c-spine range of motion. Full TMJ range of motion. TMD 2 finger breaths Mallampati Score 3 Dentition: intact, + several crowns Lungs: clear throughout to auscultation Cardiac: regular rate and rhythm, no murmurs noted Spine: normal Carotid arteries: negative bruit Extremities: no edema Testing Laboratory Results 03/23/20 16:20 03/23/20 16:20 PT 10.7 Seconds (9.0-12.0) 03/23/20 16:20 INR 1.0 (0.9-1.1) 03/23/20 16:20 APTT 28.1 Seconds (21.0-31.0) 03/23/20 16:20 Hemoglobin A1c 5.6 % (4.5-5.6) 03/23/20 16:20 Urine Color Yellow 03/23/20 16:20 Urine Appearance Clear (Clear) 03/23/20 16:20 Urine pH 6.5 (4.5-7.5) 03/23/20 16:20 Ur Specific Marcus 1.023 (1.000-1.030) 03/23/20 16:20 Urine Protein Negative (Negative) 03/23/20 16:20 Urine Glucose (UA) Negative (Negative) 03/23/20 16:20 Urine Ketones Negative (Negative) 03/23/20 16:20 Urine Nitrite Negative (Negative) 03/23/20 16:20 Ur Leukocyte Esterase Negative (Negative) 03/23/20 16:20 Blood Type O Positive 03/23/20 16:20 Antibody Screen NEGATIVE 03/23/20 16:20 Low WBC. Will forward preop labs to PCP for continuity of care* Electrocardiogram Date: 02/10/20 SR with arrhythmia at 81bpm. LAD. Chest X-Ray Date: 03/23/20 FINDINGS: PA and lateral chest radiographs are compared to study dated 03/14/2019. The heart is enlarged. The pulmonary vasculature is noncongested. There is mild bibasilar atelectasis. The lungs and pleural spaces are otherwise clear. There is no pneumothorax. The bony thorax appears intact. Degenerative change is seen in the thoracic spine. IMPRESSION: Mild cardiac enlargement with no active disease in the chest.
[2020-03-23 16:43] LABS: Appearance Urine Clear (Clear); Bilirubin Urine Negative (Negative); Blood Urine Negative (Negative); Color Urine Yellow; Glucose Urine UA Negative (Negative); Ketones Urine Negative (Negative); Leukocyte Esterase Urine Negative (Negative); Nitrite Urine Negative (Negative); Protein Urine Negative (Negative); Specific Gravity Urine 1.023 (1.000-1.030); Urobilinogen Urine Negative (Negative); pH Urine 6.5 (4.5-7.5)
[2020-03-23 16:54] LABS: Partial Thromboplastin Time 28.1 Seconds (21.0-31.0); Prothrombin Time 10.7 Seconds (9.0-12.0)
[2020-03-23 16:58] LABS: Basophils # (auto) 0.01 K/uL (0-0.2); Basophils % (auto) 0.2 %; Eosinophils # (auto) 0.11 K/uL (0-0.5); Eosinophils % (auto) 2.4 %; Hematocrit (blood only) 41.9 % (42-52); Hemoglobin 13.5 g/dL (14.0-18.0); Lymphocytes # (auto) 1.03 K/uL (1.2-3.4); Lymphocytes % (auto) 22.8 %; Mean Corpuscular Hemoglobin 31.2 pg (25-34); Mean Corpuscular Hgb Conc 32.2 g/dL (32-36); Mean Corpuscular Volume 96.8 fL (80-100); Mean Platelet Volume 10.2 fL (7.4-10.4); Monocytes # (auto) 0.23 K/uL (0.11-0.59); Monocytes % (auto) 5.1 %; Neutrophils # (auto) 3.13 K/uL (1.4-6.5); Neutrophils % (auto) 69.5 %; Platelet Count 265 K/uL (130-400); RDW Coefficient of Variation 13.8 % (11.5-14.5); RDW Standard Deviation 49.2 fL (36.4-46.3); Red Blood Count 4.33 M/uL (4.7-6.1); White Blood Count 4.51 K/uL (4.8-10.8)
[2020-03-23 17:05] LABS: Albumin Level 3.9 gm/dl (3.4-5.0); BUN Creatinine Ratio 30.3 (10-20); Calcium 8.7 mg/dl (8.5-10.1); Creatinine Clr Calc Pharmacy 138.1 ml/min; Est GFR (African American) 120.1; Est GFR (Non-African American) 103.6; Potassium 3.7 mmol/L (3.5-5.1)
--- NOTE | 2020-03-23 18:55 | XRay Report ---
TWO VIEW CHEST CLINICAL HISTORY: Preoperative examination. FINDINGS: PA and lateral chest radiographs are compared to study dated 03/14/2019. The heart is enlar ged. The pulmonary vasculature is noncongested. There is mild bibasilar atelectasis. The lungs and pl eural spaces are otherwise clear. There is no pneumothorax. The bony thorax appears intact. Degenerat nikkie change is seen in the thoracic spine. IMPRESSION: Mild cardiac enlargement with no active disease in the chest. ACT 112: Negative or not required by law. Electronically signed by: Trung Hernandez M.D. 03/23/2020 6:53 PM
[2020-03-24 06:04] LABS: Estimated Average Glucose 114 mg/dl; Hemoglobin A1C 5.6 % (4.5-5.6)
--- NOTE | 2020-04-03 15:02 | History and Physical Report ---
DATE OF ADMISSION: 04/07/2020 A 54-year-old male scheduled to undergo bilateral total knee arthroplasties next week for severe osteoarthritis. MEDICAL PROBLEMS: Include: 1. Nephrolithiasis. The patient recently underwent 2 procedures for internal lithotripsy. The procedure was well tolerated, both of them. Done under general anesthesia. 2. Osteoarthritis. 3. History of right total hip arthroplasty 03/2019. 4. Obstructive sleep apnea. 5. Attention deficit disorder. 6. Known rotator cuff of the left shoulder. CURRENT MEDICATIONS: Include: 1. Concerta ER 36 mg daily. 2. Clonidine 0.1 mg at bedtime. 3. Multivitamin 1 daily. The patient has known severe osteoarthritis of both knees. The pain has been persistent. He had been treated in the past with anti-inflammatory medications, unfortunately without adequate control of his symptomatology. Surgery was recommended and he is scheduled to be done next week. Past medical history all as noted above. In addition, he had a vasectomy many years ago. SOCIAL HISTORY: He is . He has 3 children from his first marriage. He never smoked. Occasional beer. No use of any illicit drugs. He is a registered nurse. FAMILY HISTORY: His mother is 88, she is living. Has dementia and macular degeneration. His father at age 46, had colon cancer. He has multiple siblings. Many of them had a knee replacement. ALLERGIES: None. CURRENT MEDICATIONS: All as noted above. REVIEW OF SYSTEMS: He is doing quite well. He has no history of any cardiac or pulmonary or renal disease. He denied any headache, dizziness or lightheadedness. No earache, sore throat or neck pain. No chest pain, pressure or tightness. No shortness of breath. No exertional symptomatology. No abdominal pain, no nausea, no vomiting. His flank pain has resolved since he had his lithotripsies. He does complain of joint pain in his knees related to his osteoarthritis. No ankle edema. PHYSICAL EXAMINATION: GENERAL: Well developed, in no distress. Weight 255 pounds, height 68 inches, BMI 38.77. VITAL SIGNS: Blood pressure 154/82 initially, then it was rechecked about 10 minutes later and it was down to 138/84, pulse 68 and regular, temperature 98.4. SKIN: Warm and dry without any rash. HEENT: He does have a trifocal correction for his vision. No mucosal abnormalities in his nose, mouth or throat. Ears were normal. NECK: Supple, nontender without adenopathy or thyromegaly. No JVD. Normal carotid pulses. No carotid bruits. CHEST: Normal. HEART: Regular heart sounds without any murmur, rub or gallop. LUNGS: Clear. Normal breath sounds. ABDOMEN: Obese, soft, nontender, without organomegaly or masses. BACK: No spinal tenderness. EXTREMITIES: Scar, right hip from prior surgeries. Osteoarthritis of multiple joints especially the knees. Good pedal pulses. NEUROLOGIC: He is alert and oriented without lateralized deficits. PREOPERATIVE TESTING: Includes: 1. Chest x-ray showed what is described as mild cardiac enlargement, but without any active disease of the chest. His blood type was O positive with negative antibody screen. His urine culture was negative. CBC showed a WBC count of 4510, hemoglobin 13.5, hematocrit 41.9, platelet count 265,000. Prothrombin time 10.7, INR 1.0, PTT 28.1. His chemistry showed a sodium of 142, potassium 3.7, chloride 110, CO2 of 30, BUN 23, creatinine 0.77, glucose 100, calcium 8.7, albumin 3.9. His hemoglobin A1c was 5.6%. His urinalysis was normal. His electrocardiogram showed a regular sinus rhythm without any significant abnormalities. ASSESSMENT: 1. Osteoarthritis. 2. Preoperative examination. The patient is scheduled to undergo bilateral total knee arthroplasties. 3. Obstructive sleep apnea. 4. Lithotripsy, bilateral. 5. Nephrolithiasis, status post 2 lithotripsy procedures. 6. Attention deficit disorder. 7. Obstructive sleep apnea. 8. Obesity. PLAN: The patient was evaluated. All his laboratory tests were reviewed. He is in a stable medical condition. There is no evidence of contraindication for his anticipated surgery. The patient just had 2 lithotripsy procedures under general anesthesia, which were well tolerated. He will continue taking his medications. DUNIA
--- NOTE | 2020-04-06 22:10 | History & Physical Report ---
Date of Service April 06, 2020 Assessment & Plan (1) Degenerative joint disease of knee, right: (2) Degenerative joint disease of left knee: I have indicated the patient for bilateral total knee replacement. The risks, benefits and complications of surgery were explained to the patient which include but not limited to infection, acute blood loss, DVT/PE, injury to nerves, vessels, bone, soft tissue, arthrofibrosis, chronic pain, failure of the prosthesis, knee dislocation, leg length discrepancy, need for additional surgery, cardiac and pulmonary events and . The patient wished to proceed with surgery and informed consent was obtained at this time. We will plan for Lovenox post-operatively for DVT prophylaxis. Upon discharge the patient will be discharged home with home health services vs rehab. Appropriate clearances by PCP were obtained. History of Present Illness Chief Complaint: Bilateral knee DJD/pain Primary Care Provider: Alejandro Longoria MD The patient is a 54 year old male who presents with complaints of severe bilateral knee pain and DJD. The patient has failed outpatient conservative treatments to this point which included NSAIDs, IA corticosteroid injections, MAZARIEGOS injections, PT and a home exercise/walking program. The patient's pain and limited function have progressed to the point where they severely hinder their activities of daily living and they no longer tolerate exercise programs. They are requesting to proceed with bilateral total knee replacement surgery. Allergies Allergy/AdvReac Type Severity Reaction Status Date / Time No Known Allergies Allergy Verified 04/07/20 07:59 Home Medications Medication Instructions Recorded Confirmed Type CPAP Machine #1 ea 03/21/19 07/11/19 Rx acetaminophen [Tylenol Extra 1,000 mg PO Q8 PRN #90 tab 04/08/19 04/07/20 Rx Strength] celecoxib [Celebrex] 200 mg PO BID PRN #28 cap 04/08/19 04/07/20 Rx sennosides [Senokot] 17.2 mg PO HS PRN #28 tab 04/08/19 04/07/20 Rx tadalafil 20 mg tablet 20 mg PO DAILY PRN 07/11/19 04/07/20 History clonidine HCl 0.1 mg PO HS 03/20/20 04/07/20 History methylphenidate HCl [Concerta] 36 mg PO QAM 03/20/20 04/07/20 History multivitamin 1 tab PO DAILY 03/20/20 04/07/20 History Past Med/Surg History Medical History Attention deficit disorder (ADD) Bulging disc cervical History of kidney stones Hx of gout Obesity SYEDA (obstructive sleep apnea) CPAP Osteoarthritis Surgical History History of colonoscopy History of cystoscopy multiple History of knee surgery right knee bone chip repair History of lithotripsy multiple History of total hip arthroplasty Right DAVID: 04/08/19: SAB x 1 attempt at L3-L4 at [facility] [place] teeth removed Family History Father Colorectal cancer Mother Dementia Breast cancer Other No family history of adverse response to anesthesia Social History Smoking Status: Never smoker Second Hand Exposure: No; Do You Dip or Chew Tobacco: No; Tobacco Cessation Education Requested by Patient: No Hx Alcohol Use: Yes Alcohol type: beer and wine Hx Substance Use: No Preferred Language: Indonesian Communication Ability: Effective Boiler Fireman Required: No Beliefs That Will Affect Care: None marital status: Current Living Situation: Spouse Feels Safe at Home: Yes Safety Concerns: Feels Safe At This Time Assistive Devices: CPAP and Glasses Review of Systems Review of Systems: All systems reviewed & are unremarkable except as noted in HPI & below Constitutional: as per Subjective / HPI Physical Exam Physical Exam: LLE NVSI +EHL/FHL/TA/GS SILT grossly, +2 DP pulse, compartments soft NT, painful ROM 0-105 degrees of flexion, +creptius. RLE NVSI +EHL/FHL/TA/GS SILT grossly, +2 DP pulse, compartments soft NT, painful ROM 0-110 degrees of flexion, +crepitus. Constitutional: WD/WN, vitals as above Eyes: PERRL, conjunctivae normal, anicteric sclerae ENMT: external ear and nose normal, oropharynx normal Neck: trachea midline, no thyromegaly Respiratory: normal respiratory effort, lungs clear to auscultation Cardiovascular: RRR, no murmur, no edema Gastrointestinal (Abdomen): normal bowel sounds, soft, nontender, no hepatosplenomegaly Musculoskeletal: no cyanosis or clubbing, extremities motor strength 5/5 Skin: no rashes, warm and dry Neurologic: patellar DTR's 2+ bilat, sensation intact Psychiatric: A+Ox3, euthymic affect Lymphatic: no cervical or axillary lymphadenopathy Results & Data Results & Data ([facility]) Diagnostic Findings Multiple views of the right knee demonstrates severe tricompartmental DJD with complete loss of the medial joint space. +osteophytes, +sclerosis, +subchondral cysts. Multiple views of the left knee demonstrates severe tricompartmental DJD with complete loss of the medial joint space. +osteophytes, +sclerosis, +subchondral cysts. Pre Admission Testing Addendum Laboratory Results 03/23/20 16:20 03/23/20 16:20 PT 10.7 Seconds (9.0-12.0) 03/23/20 16:20 INR 1.0 (0.9-1.1) 03/23/20 16:20 APTT 28.1 Seconds (21.0-31.0) 03/23/20 16:20 Hemoglobin A1c 5.6 % (4.5-5.6) 03/23/20 16:20 Urine Color Yellow 03/23/20 16:20 Urine Appearance Clear (Clear) 03/23/20 16:20 Urine pH 6.5 (4.5-7.5) 03/23/20 16:20 Ur Specific Comfort 1.023 (1.000-1.030) 03/23/20 16:20 Urine Protein Negative (Negative) 03/23/20 16:20 Urine Glucose (UA) Negative (Negative) 03/23/20 16:20 Urine Ketones Negative (Negative) 03/23/20 16:20 Urine Nitrite Negative (Negative) 03/23/20 16:20 Ur Leukocyte Esterase Negative (Negative) 03/23/20 16:20 Blood Type O Positive 03/23/20 16:20 Antibody Screen NEGATIVE 03/23/20 16:20 03/23/20 16:20 Urine Culture - Final Urine,Clean Catch No growth - less than 1,000 colonies/mL.
[~2020-04-07 07:42] MED LIST changes: +BUPIVACAINE 0.25% 30 ML VIAL ONE; -CEFAZOLIN 2000MG 2,000 MG/15 ML SYR IV SCH; -DEXAMETHASONE SOD INJ 4 MG/ML VIAL ONE; -LR 15ML/HR IV SCH; +LR 500ML BOLUS, THEN 15ML/HR IV SCH; -MIDAZOLAM HCL 1 MG/ML 2ML VIAL ONE; -ONDANSETRON INJ 2 MG/ML 2 ML VIAL ONE; -PROPOFOL IV EMULSION 10 MG/ML 20 ML VIAL IV ONE; -ROPIVACAINE 0.5% HCL/PF 150 MG, BUPIVACAINE 0.5% MPF 30 ML, EPINEPHrine 30MG/30ML (OR U... INSTIL SCH; +ROPIVACAINE 0.5% HCL/PF 150 MG, BUPIVACAINE 0.75% MPF 20 ML, EPINEPHrine 30MG/30ML (OR ... INSTIL SCH; +ceFAZolin 2000MG 2,000 MG/15 ML SYR IV SCH; -fentaNYL citrate 100 MCG/2 ML VIAL ONE
[2020-04-07] MEDS ORDERED: fentaNYL citrate 100 MCG/2 ML VIAL ONE ×2 (09:13→11:49)
[2020-04-07] MEDS ORDERED: MIDAZOLAM HCL 1 MG/ML 2ML VIAL ONE ×3 (09:13→13:46)
[2020-04-07] MEDS ORDERED: ONDANSETRON INJ 2 MG/ML 2 ML VIAL ONE (09:18)
[2020-04-07] MEDS ORDERED: LIDOCAINE HCL 2% 2 ML VIAL/AMP(20MG/ML) INFIL ONE (09:18)
[2020-04-07] MEDS ORDERED: PROPOFOL IV EMULSION 10 MG/ML 20 ML VIAL IV ONE ×3 (09:18→13:36)
[2020-04-07] MEDS ORDERED: ATROPINE SULFATE 0.1 MG/ML 10ML SYR IV PRN (09:25)
[2020-04-07] MEDS ORDERED: ePHEDrine sulfate 50 MG/ML AMP IV PRN (09:25)
[2020-04-07] MEDS ORDERED: ONDANSETRON INJ 2 MG/ML 2 ML VIAL IV PRN ×2 (09:25→16:26)
[2020-04-07] MEDS ORDERED: ORTHO JOINT ANESTHETIC ONE (09:52)
[2020-04-07] MEDS ORDERED: BACITRACIN INJ 50,000 UNIT VIAL ONE (09:52)
--- NOTE | 2020-04-07 10:10 | History & Physical Bridge Note ---
Date of Service April 07, 2020 History & Physical Bridge Note I have examined the patient, reviewed the History & Physical and in the interval since the performance of the History & Physical I have noted the following changes of clinical significance: no changes noted
[2020-04-07] MEDS ORDERED: EPINEPHrine INJ 1 MG/ML AMP ONE (10:23)
[2020-04-07] MEDS ORDERED: DEXAMETHASONE SOD INJ 4 MG/ML VIAL ONE (11:54)
--- NOTE | 2020-04-07 13:57 | Post Operative Brief Note ---
Immediate Post Op Note v1 Date of Surgery April 07, 2020 Pre & Post Diagnosis Operation Date: 04/07/20 09:50 Pre-Op Diagnosis: Bilateral Osteoarthritis of Knee Post-Op Diagnosis: Bilateral Osteoarthritis of Knee I identified the patient and participated in the time-out.: Yes Procedure Operation Date: 04/07/20 09:50 Actual Procedures p Bilateral Total Knee Arthroplasty(Bilateral) - Remberto Villatoro DO Surgeon Remberto Villatoro DO Senior Project Controls Specialist Jun Ceja Estimated Blood Loss 150 Findings Consistent with Post-Op Diagnosis Specimens Left knee Proximal Tibia and distal femur bone fragments Right knee Proximal Tibia and distal femur bone fragments Anesthesia Type Spinal MAC Complications none Disposition Disposition: Recovery Room Overlapping Procedure I was present for: the critical portions of procedure. I was immediately available: during the entire case. Back up surgeon: was not required during procedure.
--- NOTE | 2020-04-07 13:59 | Operative Report ---
Post Operative Report Pre & Post Diagnosis Operation Date: 04/07/20 09:50 Pre-Op Diagnosis: Bilateral Osteoarthritis of Knee Post-Op Diagnosis: Bilateral Osteoarthritis of Knee I identified the patient and participated in the time-out.: Yes Procedure Operation Date: 04/07/20 09:50 Actual Procedures p Bilateral Total Knee Arthroplasty(Bilateral) - Remberto Villatoro DO Surgeon Remberto Villatoro DO Clinical Quality Analyst Jun Ceja Estimated Blood Loss 150 Findings Consistent with Post-Op Diagnosis Fluids 1500 cc LR Specimens Left knee proximal tibia and distal femur bone fragments Right knee proximal tibia and distal femur bone fragments Anesthesia Type Spinal MAC Complications none Disposition Disposition: Recovery Room Indications The patient is a 54 year old male who presents with complaints of severe bilateral knee pain and DJD. The patient has failed outpatient conservative treatments to this point which included NSAIDs, IA corticosteroid injections, MAZARIEGOS injections, PT and a home exercise/walking program. The patient's pain and limited function have progressed to the point where they severely hinder their activities of daily living and they no longer tolerate exercise programs. They are requesting to proceed with bilateral total knee replacement surgery. I have indicated the patient for bilateral total knee replacement. The risks, benefits and complications of surgery were explained to the patient which include but not limited to infection, acute blood loss, DVT/PE, injury to nerves, vessels, bone, soft tissue, arthrofibrosis, chronic pain, failure of the prosthesis, knee dislocation, leg length discrepancy, need for additional surgery, cardiac and pulmonary events and . The patient wished to proceed with surgery and informed consent was obtained at this time. We will plan for Lovenox post-operatively for DVT prophylaxis. Upon discharge the patient will be discharged home with home health services vs rehab. Appropriate clearances by PCP were obtained. Description of Procedure COMPONENTS USED: Maeve Persona total knee system: Left: Femur size 10, Tibia size G tibial articulating surface 14 CPS, Patella 35 mm Right: Femur size 10, Tibia size G tibial articulating surface 12 CPS, Patella 38 mm Following induction of spine anesthesia, a tourniquet was applied to the proximal aspect of bilateral thighs and the patient's bilateral legs were prepped and draped in the usual sterile manner. A timeout was performed, patient identified and site jonnathan confirmed. Appropriate pre-operative IV antibiotics were given. The left limb was exsanguinated with an Esmarch bandage and tourniquet was inflated to 300 mmHg. A longitudinal midline incision was made over the anterior knee. Subcutaneous tissue was sharply dissected down to fascia. Electrocautery was used for hemostasis. Next a parapatellar arthrotomy was performed. Patella was everted and the knee was flexed. A Oseguera retractor was used to expose the synovium above on the anterior aspect of the femur and removed down to bone. Next, the anterior fat pad was removed to aid in visualization. The medial face of the tibia was cleared of soft tissue first with a Bovie and a mckoy elevator. This tissue was retracted posteriorly using a blunt Hohmann. Next, the extra-medullary tibial cutting guide was placed to the anterior aspect of the tibia. The tibia resection level was set taking 2mm from the defective tibial condyle. Resection depth was once again confirmed with joel wing. The medial and lateral collateral ligament was protected with two Hohmann retractors. The tibia guide was removed and proximal tibial bone fragment removed utilizing straight osteotome, electrocautery and Hung. Next, the distal femur intramedullary canal was accessed utilizing the step drill. The intramedullary distal femur cutting guide was placed into the canal and pinned into place. The distal femur was cut on the 5 degree +0 setting. Next the cutting guide was removed and the femur was sized. Care was taken to ensure appropriate process developer all rotation and 3 degree holes were drilled. A size 10 4-in-1 cutting block was placed on the distal end of the femur and secured into place with two short headed screws. Two bent Hohmann retractors were placed to protect the medial and lateral collateral ligaments. The oscillating saw was used to cut anterior, posterior, anterior chamfer and posterior chamfer. The four and one cutting block was removed and bone fragments excised. Laminar manager dairy was placed laterally and the ACL and PCL were removed followed by the medial meniscus and posterior medial osteophytes. Aquamantys was utilized for any posterior medial bleeders and Orthomix injected into the posterior medial capsule. A laminar manager dairy was then placed in the medial compartment and the lateral meniscus and posterior osteophytes were removed. Aquamantys was utilized for any posterior lateral bleeders and Orthomix injected into the posterior lateral capsule. Next, drop loi and spacer block were placed with the leg in flexion and extension to assess alignment and flexion/extension gaps. Next, the proximal tibia was assessed and two bent Hohmans were placed medial and lateral to aid in visualization. The appropriate tibia size and rotation was selected and a size G tibial plate was pinned into place with appropriate rotation. Preparation of the tibia was completed utilizing the matching tibial drill and broach. I then turned my attention back to the distal femur in a trial femoral component was impacted into place. Appropriate femoral width was assessed and selected. Next the femur PS box cut guide was placed and cut made with the reciprocal saw and the PS box provisional placed. A trial size 12 PS tibia articular tray was placed and varus-valgus balance assessed in 0 degrees of extension and 30, 60 and 90 degrees of flexion. A final tibial articular surface size 14 CPS was chosen. Assess was gained to the patella and caliper utilized to measure width. The patella reamer was utilized and remaining bone removed with oscillating saw. A size 35 mm patella button was selected and the patella pegs drilled. Trial patella button was placed and tracking was assessed. The knee was found to be well balanced, well aligned with excellent patella tracking. The trials were removed and final components were obtained and assembled. The knee was irrigated copiously with sterile saline solution mixed with bacitracin. Access to the proximal tibia was once again obtained utilizing to the Hohmans and the proximal tibia and distal femur were dried with lap sponges. The final components were cemented into place and all excess cement was removed. A trial tibial articular surface was placed while cemented hardened. Knee stability was once again assessed and the final component inserted. A Betadine soak was performed. After 3 minutes, the knee was once more irrigated with copious sterile saline solution with bacitracin. The knee was injected with Orthomix which includes a combination of Ropivicaine 0.5% 150mg, Bupivicaine 0.5%/Epinephrine 1:200,000 30ml, Toradol 30mg, Dexamethasone 4mg, Ketamine 10mg, Clonidine 100mcg and NSS 30ml solution. The capsulotomy was closed with #1 Vicryl followed by subcutaneous closure with 2-0 Vicryl suture and a 3-0 V-lock suture. Skin closure was performed using Prineo dressing followed by Telfa, 4 x 4s and italia wrap. Tourniquet was deflated at 102 minutes. A second timeout was performed, patient identified and site jonnathan confirmed. Appropriate pre-operative IV antibiotics were verified given. The right limb was exsanguinated with an Esmarch bandage and tourniquet was inflated to 300 mmHg. A longitudinal midline incision was made over the anterior knee. Subcutaneous tissue was sharply dissected down to fascia. Electrocautery was used for hemostasis. Next a parapatellar arthrotomy was performed. Patella was everted and the knee was flexed. A Oseguera retractor was used to expose the synovium above on the anterior aspect of the femur and removed down to bone. Next, the anterior fat pad was removed to aid in visualization. The medial face of the tibia was cleared of soft tissue first with a Bovie and a mckoy elevator. This tissue was retracted posteriorly using a blunt Hohmann. Next, the extra-medullary tibial cutting guide was placed to the anterior aspect of the tibia. The tibia resection level was set taking 2mm from the defective tibial condyle. Resection depth was once again confirmed with joel wing. The medial and lateral collateral ligament was protected with two Hohmann retractors. The tibia guide was removed and proximal tibial bone fragment r emoved utilizing straight osteotome, electrocautery and Hung. Next, the distal femur intramedullary canal was accessed utilizing the step drill. The intramedullary distal femur cutting guide was placed into the canal and pinned into place. The distal femur was cut on the 5 degree +0 setting. Next the cutting guide was removed and the femur was sized. Care was taken to ensure appropriate process developer all rotation and 3 degree holes were drilled. A size 10 4-in-1 cutting block was placed on the distal end of the femur and secured into place with two short headed screws. Two bent Hohmann retractors were placed to protect the medial and lateral collateral ligaments. The oscillating saw was used to cut anterior, posterior, anterior chamfer and posterior chamfer. The four and one cutting block was removed and bone fragments excised. Laminar manager dairy was placed laterally and the ACL and PCL were removed followed by the medial meniscus and posterior medial osteophytes. Aquamantys was utilized for any posterior medial bleeders and Orthomix injected into the posterior medial capsule. A laminar manager dairy was then placed in the medial compartment and the lateral meniscus and posterior osteophytes were removed. Aquamantys was utilized for any posterior lateral bleeders and Orthomix injected into the posterior lateral capsule. Next, drop loi and spacer block were placed with the leg in flexion and extension to assess alignment and flexion/extension gaps. Next, the proximal tibia was assessed and two bent Hohmans were placed medial and lateral to aid in visualization. The appropriate tibia size and rotation was selected and a size G tibial plate was pinned into place with appropriate rotation. Preparation of the tibia was completed utilizing the matching tibial drill and broach. I then turned my attention back to the distal femur in a trial femoral component was impacted into place. Appropriate femoral width was assessed and selected. Next the femur PS box cut guide was placed and cut made with the reciprocal saw and the PS box provisional placed. A trial size 12 PS tibia articular tray was placed and varus-valgus balance assessed in 0 degrees of extension and 30, 60 and 90 degrees of flexion. A final tibial articular surface size 12 CPS was chosen. Assess was gained to the patella and caliper utilized to measure width. The patella reamer was utilized and remaining bone removed with oscillating saw. A size 38 mm patella button was selected and the patella pegs drilled. Trial patella button was placed and tracking was assessed. The knee was found to be well balanced, well aligned with excellent patella tracking. The trials were removed and final components were obtained and assembled. The knee was irrigated copiously with sterile saline solution mixed with bacitracin. Access to the proximal tibia was once again obtained utilizing to the Hohmans and the proximal tibia and distal femur were dried with lap sponges. The final components were cemented into place and all excess cement was removed. A trial tibial articular surface was placed while cemented hardened. Knee stability was once again assessed and the final component inserted. A Betadine soak was performed. After 3 minutes, the knee was once more irrigated with copious sterile saline solution with bacitracin. The knee was injected with the remaining Orthomix which includes a combination of Ropivicaine 0.5% 150mg, Bupivicaine 0.5%/Epinephrine 1:200,000 30ml, Toradol 30mg, Dexamethasone 4mg, Ketamine 10mg, Clonidine 100mcg and NSS 30ml solution. The capsulotomy was closed with #1 Vicryl followed by subcutaneous closure with 2-0 Vicryl suture and a 3-0 V-lock suture. Skin closure was performed using Prineo dressing followed by Telfa, 4 x 4s and italia wrap. Tourniquet was deflated at 109 minutes. The patient tolerated the procedures well and was taken to the PACU in stable condition. Due to the complex nature of the procedure, the entire surgery was performed with the operational assistance of Jun ceja PA-C. The photographer's assistant, under direct supervision, was involved in the actual performance of all aspects of the surgical procedure including patient positioning, hemostasis, tissue retraction, instrument management and wound closure. I attest to the content of the Intraoperative Record and any orders documented t herein. Any exceptions are noted below.
--- NOTE | 2020-04-07 14:24 | Anesthesiology Progress Note ---
Date of Service April 07, 2020 Anesthesia Post Procedure Vital Signs Vital Signs: Temp Pulse Resp BP Pulse Ox 04/07/20 09:05 67 18 149/91 H 97 04/07/20 08:08 36.7 C 71 18 138/94 99 Transfer of Care Handoff Completed per policy Notes Mental Status: alert / awake / arousable Patient Amnestic to Procedure: Yes Nausea / Vomiting: adequately controlled Pain: adequately controlled Airway Patency, RR, SpO2: stable & adequate BP & HR: stable & adequate Hydration State: stable & adequate Neuraxial Anesthesia: was administered and sensory block is resolving Anesthetic Complications: no major complications apparent and Pt Satisfied with anesthetic care Notes: The patient is awake and comfortable in PACU. His vital signs are stable.
[2020-04-07] MEDS: fentaNYL citrate 100 MCG/2 ML VIAL IV PRN ×4 (14:44→14:59)
--- NOTE | 2020-04-07 14:50 | XRay Report ---
XR knee LT 1 or 2V routine CLINICAL HISTORY: Surgical Post Op COMPARISON: None. DISCUSSION: There are postsurgical changes of a total left knee arthroplasty and patellar resurfacing . The femoral and tibial components appear well seated. There is gas present within the soft tissues. This is felt to be postsurgical IMPRESSION: Postsurgical changes of a total left knee arthroplasty. ACT 112: Negative or not required by law. Electronically signed by: Vijay Zarco M.D. 04/07/2020 2:48 PM
--- NOTE | 2020-04-07 14:51 | XRay Report ---
XR knee RT 1 or 2V routine HISTORY: 54 years-old Male Surgical Post Op right knee total joint arthroplasty COMPARISON: None TECHNIQUE: 2 views of the right knee FINDINGS: Right knee total joint arthroplasty and patella resurfacing. Expected postsurgical soft tissue swelli ng and deep tissue air with surgical drainage catheter. No acute fracture or unexpected opaque foreig n body. Satisfactory alignment. IMPRESSION: Right knee total joint arthroplasty and patella resurfacing with expected postoperative c hanges. ACT 112: Negative or not required by law. The above report was generated using voice recognition software. It may contain grammatical, syntax o r spelling errors. Electronically signed by: Rajendra Roman M.D. 04/07/2020 2:49 PM
[2020-04-07] MEDS: HYDROmorphone INJ 1 MG/ML SYRINGE IV PRN ×4 (15:14→15:30)
--- NOTE | 2020-04-07 15:20 | Orthopedic Progress Note ---
Date of Service April 07, 2020 Assessment & Plan (1) Degenerative joint disease of knee, right: (2) Degenerative joint disease of left knee: Status post bilateral total knee arthroplasties -Ancef x24 -DVT prophylaxis: SCDs, teds, Lovenox daily -Weight-bear as tolerates bilateral lower extremities -PT/OT -Postoperative x-ray bilateral knees demonstrates a well line well fixed total knee prosthesis without fracture or dislocation. A.m. labs- -DC planning Subjective Post Operative Progress Note Patient seen in PACU, comfortable, denies complaints, complaining of pain, 7 out of 10 right knee, receiving pain medication, no acute issues. Review of Systems Review of Systems: All systems reviewed & are unremarkable except as noted in HPI & below Constitutional: as per Subjective / HPI Physical Exam Physical Exam: LLE NVSI +EHL/FHL/TA/GS SILT grossly, +2 DP pulse, compartments soft NT, dressing cdi. RLE NVSI +EHL/FHL/TA/GS SILT grossly, +2 DP pulse, compartments soft NT, dressing cdi. Constitutional: WD/WN, vitals as above Results & Data ([facility]) Vital Signs (Past 12 Hours) Vital Signs Temp Pulse Pulse Resp BP Pulse Ox 04/07/20 15:00 73 17 138/95 99 04/07/20 14:50 64 14 144/95 H 98 04/07/20 14:40 75 19 136/83 98 04/07/20 14:30 79 22 142/81 H 97 04/07/20 14:20 78 13 116/80 100 04/07/20 14:11 36.6 C 79 16 131/78 100 04/07/20 09:05 67 18 149/91 H 97 04/07/20 08:08 36.7 C 71 18 138/94 99
[2020-04-07] MEDS ORDERED: NALOXONE HCL 0.4 MG/1 ML VIAL/CARP IV PRN (16:26)
[2020-04-07] MEDS ORDERED: METOCLOPRAMIDE HCL INJ 5 MG/ML 2 ML VIAL IV PRN (16:26)
[2020-04-07] MEDS ORDERED: MAGNESIUM HYDROXIDE SUSP 30 ML UDC PO PRN (16:26)
[2020-04-07] MEDS ORDERED: bisacodyL 10 MG SUPP PR PRN (16:26)
[2020-04-07] MEDS ORDERED: diphenhydrAMINE Capsule 25 MG CAP PO PRN (16:26)
[2020-04-07] MEDS ORDERED: SENNA 8.6 MG TAB PO PRN (16:26)
[2020-04-07] MEDS: HYDROmorphone INJ 0.5 MG/0.5 ML SYR IV PRN ×2 (16:45→21:02)
[2020-04-07] MEDS: ceFAZolin 2000MG 2,000 MG/15 ML SYR IV SCH (18:55)
[2020-04-07] MEDS: SODIUM CHLORIDE 0.9% 1000ML 1,000 ML IV SCH (19:02)
[2020-04-07] MEDS: SENNA 8.6 MG TAB PO SCH (21:00)
[2020-04-07] MEDS: DOCUSATE SODIUM 100 MG CAP PO SCH (21:00)
[2020-04-07] MEDS: cloNIDine HCL 0.1 MG TAB PO SCH (21:01)
[2020-04-07] MEDS: ACETAMINOPHEN 500 MG TAB PO SCH (22:01)
[2020-04-07] MEDS: oxyCODONE HCL IR 5 MG TAB (IMMEDIATE RELEASE) PO PRN (23:34)
[2020-04-08] MEDS: HYDROmorphone INJ 0.5 MG/0.5 ML SYR IV PRN ×3 (02:34→12:36)
[2020-04-08] MEDS: ceFAZolin 2000MG 2,000 MG/15 ML SYR IV SCH (02:35)
[2020-04-08] MEDS: SODIUM CHLORIDE 0.9% 1000ML 1,000 ML IV SCH (04:40)
[2020-04-08] MEDS: oxyCODONE HCL IR 5 MG TAB (IMMEDIATE RELEASE) PO PRN ×4 (05:17→21:26)
[2020-04-08] MEDS: ACETAMINOPHEN 500 MG TAB PO SCH ×3 (05:18→21:22)
[2020-04-08 06:55] LABS: Hematocrit (blood only) 34.5 % (42-52); Hemoglobin 11.4 g/dL (14.0-18.0); Mean Corpuscular Hemoglobin 31.2 pg (25-34); Mean Corpuscular Volume 94.5 fL (80-100); Mean Platelet Volume 10.2 fL (7.4-10.4); Platelet Count 260 K/uL (130-400); RDW Coefficient of Variation 13.1 % (11.5-14.5); RDW Standard Deviation 45.3 fL (36.4-46.3); Red Blood Count 3.65 M/uL (4.7-6.1); White Blood Count 13.11 K/uL (4.8-10.8)
[2020-04-08 07:23] LABS: BUN Creatinine Ratio 24.7 (10-20); Calcium 8.1 mg/dl (8.5-10.1); Est GFR (African American) 105.5
[2020-04-08] MEDS: CONCERTA~ORDER AWAITING ACTION SCH ×3 (08:03→23:50)
[2020-04-08] MEDS: MULTIVITAMIN TAB PO SCH (08:08)
[2020-04-08] MEDS: DOCUSATE SODIUM 100 MG CAP PO SCH ×2 (08:08→21:21)
[2020-04-08] MEDS: ENOXAPARIN INJ 40 MG/0.4 ML SYR SQ SCH (08:08)
--- NOTE | 2020-04-08 10:26 | Orthopedic Progress Note ---
Date of Service April 08, 2020 Assessment & Plan (1) Degenerative joint disease of knee, right: (2) Degenerative joint disease of left knee: Status post bilateral total knee arthroplasties POD#1 -Ancef x24 -DVT prophylaxis: SCDs, teds, Lovenox daily -Weight-bear as tolerates bilateral lower extremities -PT/OT -Postoperative x-ray bilateral knees demonstrates a well line well fixed total knee prosthesis without fracture or dislocation. A.m. labs- as above, hgb 11.4 -DC planning - rehab Admission and Anticipated Discharge Date Admission Date: April 07, 2020 Subjective Post Operative Progress Note Patient seen sitting in chair at bedside, comfortable, denies complaints, pain well controlled, no acute issues. Denies F/C/N/V/SOB/CP. Review of Systems Review of Systems: All systems reviewed & are unremarkable except as noted in HPI & below Constitutional: as per Subjective / HPI Physical Exam Physical Exam: RLE NVSI +EHL/FHL/TA/GS SILT grossly, +2 DP pulse, compartments soft NT, dressing cdi. LLE NVSI +EHL/FHL/TA/GS SILT grossly, +2 DP pulse, compartments soft NT, dressing cdi. Constitutional: WD/WN, vitals as above Results & Data ([facility]) Vital Signs (Past 12 Hours) Vital Signs Temp Pulse Resp BP Pulse Ox 04/08/20 07:47 36.6 C 70 16 111/68 100 04/08/20 03:07 37.0 C 77 18 124/68 98 04/07/20 23:10 36.8 C 77 18 125/77 93 Laboratory Results 04/08/20 04/08/20 Range/Units 06:08 06:08 WBC 13.11 H (4.8-10.8) K/uL RBC 3.65 L (4.7-6.1) M/uL Hgb 11.4 L (14.0-18.0) g/dL Hct 34.5 L (42-52) % MCV 94.5 (80-100) fL MCH 31.2 (25-34) pg MCHC 33.0 (32-36) g/dL RDW Std Deviation 45.3 (36.4-46.3) fL RDW Coeff of Estiven 13.1 (11.5-14.5) % Plt Count 260 (130-400) K/uL MPV 10.2 (7.4-10.4) fL Sodium 134 L (136-145) mmol/L Potassium 4.0 (3.5-5.1) mmol/L Chloride 102 (98-107) mmol/L Carbon Dioxide 26 (21-32) mmol/L Anion Gap 6.0 (3-11) BUN 23 H (7-18) mg/dl Creatinine 0.95 (0.6-1.4) mg/dl Est Cr Clr Drug Dosing 112.0 ml/min Est GFR ( Amer) 105.5 Est GFR (Non-Af Amer) 91.0 BUN/Creatinine Ratio 24.7 H (10-20) Glucose 149 H (70-99) mg/dl Calcium 8.1 L (8.5-10.1) mg/dl
[2020-04-08] MEDS: SENNA 8.6 MG TAB PO SCH (21:21)
[2020-04-08] MEDS: cloNIDine HCL 0.1 MG TAB PO SCH (21:22)
[2020-04-09] MEDS: HYDROmorphone INJ 0.5 MG/0.5 ML SYR IV PRN ×2 (00:03→08:13)
[2020-04-09] MEDS: ACETAMINOPHEN 500 MG TAB PO SCH (05:00)
[2020-04-09] MEDS: oxyCODONE HCL IR 5 MG TAB (IMMEDIATE RELEASE) PO PRN ×2 (05:00→12:38)
[2020-04-09 07:09] LABS: Hematocrit (blood only) 30.1 % (42-52); Mean Corpuscular Hemoglobin 31.3 pg (25-34); Mean Corpuscular Hgb Conc 33.2 g/dL (32-36); Mean Corpuscular Volume 94.4 fL (80-100); Mean Platelet Volume 9.7 fL (7.4-10.4); Platelet Count 206 K/uL (130-400); RDW Coefficient of Variation 13.6 % (11.5-14.5); RDW Standard Deviation 47.1 fL (36.4-46.3); Red Blood Count 3.19 M/uL (4.7-6.1); White Blood Count 7.27 K/uL (4.8-10.8)
[2020-04-09 07:49] LABS: Calcium 8.6 mg/dl (8.5-10.1); Creatinine Clr Calc Pharmacy 128.2 ml/min; Est GFR (African American) 116.4; Est GFR (Non-African American) 100.5; Potassium 3.8 mmol/L (3.5-5.1)
[2020-04-09] MEDS: DOCUSATE SODIUM 100 MG CAP PO SCH (08:14)
[2020-04-09] MEDS: ENOXAPARIN INJ 40 MG/0.4 ML SYR SQ SCH (08:14)
[2020-04-09] MEDS: MULTIVITAMIN TAB PO SCH (08:14)
[2020-04-09] MEDS: CONCERTA~ORDER AWAITING ACTION SCH (08:57)
--- NOTE | 2020-04-09 09:34 | Orthopedic Progress Note ---
Date of Service April 09, 2020 Assessment & Plan (1) Degenerative joint disease of knee, right: (2) Degenerative joint disease of left knee: Status post bilateral total knee arthroplasties POD#2 -Ancef x24 -DVT prophylaxis: SCDs, teds, Lovenox daily -Weight-bear as tolerates bilateral lower extremities -PT/OT -Postoperative x-ray bilateral knees demonstrates a well line well fixed total knee prosthesis without fracture or dislocation. A.m. labs- as above, hgb 10.0 -DC planning - rehab POD#1 -Ancef x24 -DVT prophylaxis: SCDs, teds, Lovenox daily -Weight-bear as tolerates bilateral lower extremities -PT/OT -Postoperative x-ray bilateral knees demonstrates a well line well fixed total knee prosthesis without fracture or dislocation. A.m. labs- as above, hgb 11.4 -DC planning - rehab Admission and Anticipated Discharge Date Admission Date: April 07, 2020 Subjective Post Operative Progress Note Patient seen sitting in chair at bedside, comfortable, denies complaints, pain well controlled, no acute issues. Denies F/C/N/V/SOB/CP. Review of Systems Review of Systems: All systems reviewed & are unremarkable except as noted in HPI & below Constitutional: as per Subjective / HPI Physical Exam Physical Exam: RLE NVSI +EHL/FHL/TA/GS SILT grossly, +2 DP pulse, compartments soft NT, incision CDI. LLE NVSI +EHL/FHL/TA/GS SILT grossly, +2 DP pulse, compartments soft NT, incision CDI. Constitutional: WD/WN, vitals as above Results & Data ([facility]) Vital Signs (Past 12 Hours) Vital Signs Temp Pulse Resp BP Pulse Ox 04/09/20 06:35 37.1 C 78 16 122/68 98 04/08/20 23:17 37.3 C 81 17 122/67 92 Laboratory Results 04/09/20 04/09/20 Range/Units 06:41 06:41 WBC 7.27 (4.8-10.8) K/uL RBC 3.19 L (4.7-6.1) M/uL Hgb 10.0 L (14.0-18.0) g/dL Hct 30.1 L (42-52) % MCV 94.4 (80-100) fL MCH 31.3 (25-34) pg MCHC 33.2 (32-36) g/dL RDW Std Deviation 47.1 H (36.4-46.3) fL RDW Coeff of Estiven 13.6 (11.5-14.5) % Plt Count 206 (130-400) K/uL MPV 9.7 (7.4-10.4) fL Sodium 141 D (136-145) mmol/L Potassium 3.8 (3.5-5.1) mmol/L Chloride 107 (98-107) mmol/L Carbon Dioxide 28 (21-32) mmol/L Anion Gap 6.0 (3-11) BUN 18 (7-18) mg/dl Creatinine 0.83 (0.6-1.4) mg/dl Est Cr Clr Drug Dosing 128.2 ml/min Est GFR ( Amer) 116.4 Est GFR (Non-Af Amer) 100.5 BUN/Creatinine Ratio 22.0 H (10-20) Glucose 102 H (70-99) mg/dl Calcium 8.6 (8.5-10.1) mg/dl
--- NOTE | 2020-04-09 21:23 | Discharge Summary ---
Date of Service April 09, 2020 Admission HPI Per Admitting Provider The patient is a 54 year old male who presents with complaints of severe bilateral knee pain and DJD. The patient has failed outpatient conservative treatments to this point which included NSAIDs, IA corticosteroid injections, MAAZRIEGOS injections, PT and a home exercise/walking program. The patient's pain and limited function have progressed to the point where they severely hinder their activities of daily living and they no longer tolerate exercise programs. They are requesting to proceed with bilateral total knee replacement surgery. Principal Diagnosis Bilateral total knee replacement -Bilateral knee DJD Discharge Exam RLE NVSI +EHL/FHL/TA/GS SILT grossly, +2 DP pulse, compartments soft NT, incision cdi. LLE NVSI +EHL/FHL/TA/GS SILT grossly, +2 DP pulse, compartments soft NT, incision cdi. Constitutional WD/WN, vitals as above Discharge Data Allergies Allergy/AdvReac Type Severity Reaction Status Date / Time No Known Allergies Allergy Verified 04/07/20 07:59 Consultations 04/07/20 16:26 Consult Case Management - Discharge Planning Routine Procedures Performed Operation Date: 04/07/20 09:50 Actual Procedures p Bilateral Total Knee Arthroplasty(Bilateral) - Remberto Villatoro DO Ordered Studies 04/07/20 05:00 US - OR guided needle placemen Routine Hospital Course (1) Degenerative joint disease of knee, right: (2) Degenerative joint disease of left knee: The patient is a 54 -year-old male who presents with long standing history of severe bilateral knee DJD and failed outpatient conservative treatments. The patient's symptoms have progressed to the point where it has been difficult to perform even normal activities of daily living. I indicated the patient for a bilateral total knee arthroplasty, the risks, benefits and complications of the procedure include but not limited to infection, bleeding, damage to bone, nerves, vessels, surrounding soft tissue, may develop blood clots, loss of function, leg length discrepancy, dislocation, failure of the components, loosening of the components, the need for additional surgery and . The patient wished to proceed with surgery at this time and informed consent was obtained. Hospital Course: On 04/07/20 the patient was taken to the operating room, adequate anesthesia administered and underwent a bilateral total knee arthroplasty. The patient tolerated the procedure well and was taken to the PACU in stable condition. Post-operatively the patient was started on a DVT ppx medication and given appropriate IV antibiotics. Consults were placed to physical therapy, occupational therapy and case management. On POD#1, the patient did well overnight and their pain was well controlled. Labs were drawn and the Hgb was 11.4. The patient progressed well with PT. Dressings were changed at this time and the incision was clean, dry and intact. On POD#2, the patient continued to do well, progressed with PT, labs drawn, hgb 10.0. The patients hospital stay was relatively uneventful and they were deemed stable by the orthopedic team and consultants to be discharged to rehab on 04/09/20. Discharge Instructions: Upon discharge the patient may weight bear as tolerates through their operative extremities. They were instructed to keep the incision clean and dry at all times. The patient may shower but should not submerge the incision, avoid bathing, pools and hot tubs. The patient was given a script for pain medication and should take as instructed. The patient was given a script for DVT ppx Lo venox 40mg daily and should take as directed. The patient was instructed to not drive or travel for long distances until cleared to do so. If the patient develops any symptoms of fevers, chills, nausea, vomiting, increased redness, swelling, pain or drainage from the surgical site, they should notify the office and/or proceed to the nearest emergency room. The patient should follow up in 10-14 days after surgery for their routine post-operative follow-up appointment and should call the office, to confirm the date and time. Status post bilateral total knee arthroplasties POD#2 -Ancef x24 -DVT prophylaxis: SCDs, teds, Lovenox daily -Weight-bear as tolerates bilateral lower extremities -PT/OT -Postoperative x-ray bilateral knees demonstrates a well line well fixed total knee prosthesis without fracture or dislocation. A.m. labs- as above, hgb 10.0 -DC planning - rehab POD#1 -Ancef x24 -DVT prophylaxis: SCDs, teds, Lovenox daily -Weight-bear as tolerates bilateral lower extremities -PT/OT -Postoperative x-ray bilateral knees demonstrates a well line well fixed total knee prosthesis without fracture or dislocation. A.m. labs- as above, hgb 11.4 -DC planning - rehab Total Time Total Time Spent Total Time Spent (In Minutes): 60 Discharge Plan Discharge Items Patient Disposition: Transfer Inpatient Rehab Fac Reason For Visit: Bilateral Osteoarthritis of Knee Discharge Diagnosis: Bilateral total knee replacement -Bilateral knee DJD Condition on Discharge: Good Activity: Per Instructions section Lifting: Wait until after follow-up appointment Bathing: Keep incision dry Bathing Comment: No bathing, pools or hot tubs. Sexual Activity: Wait until after follow-up appointment Exercise/Sports: Wait until after follow-up appointment Driving/Machine Use: No driving Weightbearing: Full weightbearing Non-emergency contact: Primary Care Provider and Surgeon Call non-emergency contact if: you have any medication questions, your symptoms worsen, your pain is not controlled, your pain is worsening, your pain is unusual for you, your pain is concerning for you, you have a fever, your temperature is above 101, your wound has increased redness, your wound has increased drainage and your wound pain has increased Follow-up/Referrals: Alejandro Grover MD [Primary Care Provider] - Diet: Regular Addtl Attending Provider Instructions: ACTIVITY RECOMMENDATIONS: SELF CARE INSTRUCTIONS AFTER TOTAL KNEE REPLACEMENT A. You may need to continue a physical therapy program after discharge from the hospital. There are several options available to you. Your doctor will assist you in selecting the best one for you. 1. An out-patient facility 2 to 3 times a week for therapy or home therapy. 2. Continue working on all exercises taught to you in the hospital. Your goals should be to increase bending of your knee to 90 degrees and beyond and to fully straighten your knee. B. You may progress at your own pace from walking with a walker or crutches to a cane; then to no assistive devices. C. Make walking a part of your daily routine. Be up as much as comfortable with rest periods throughout the day. Rest with leg elevation is very important. Use the ice wrap frequently for the first 3-4 weeks. D. There are no restrictions on activities. You may ride in a car, shop, participate in glassie and all social activities. E. Wear the long elastic stockings (DARWIN hose) 20 hours a day for 2 weeks after surgery. They can be removed several times a day for laundering and for a bath. F. You may shower, no tub baths until cleared by your doctor. SPECIAL CARE INSTRUCTIONS: VERY IMPORTANT TO READ AND REVIEW A. There are a few signs you need to watch for after you are home. Call [facility] if you notice any of the followin. Increased severe knee pain. Some pain is expected especially when you exercise. 2. Increased swelling in your leg or knee; pain or swelling of the calf muscle in either lower leg. 3. Any fluid drainage from the incision. 4. Shortness of breath or chest pain. B. Please call [facility] at if you have any concerns or questions about your operation or recovery. The doctor or his nurse will return your call promptly. C. You must take antibiotics before dental work, bladder, bowel or other surgery. Your doctor will provide you with a permanent care to carry describing this precaution. IMPORTANT: * REMEMBER TO TAKE LOVENOX 40MG DAILY FOR 4 WEEKS UNLESS OTHERWISE DIRECTED. THIS IS YOUR BLOOD THINNER. * HIGH RISK PATIENTS MAY BE PRESCRIBED A STRONGER BLOOD THINNER. THIS WILL BE PROVIDED AT DISCHARGE. * CALL IF INCREASED PAIN, REDNESS, DRAINAGE OR FEVER GREATER THAT 101. * WEAR DARWIN HOSE 20 HOURS PER DAY FOR 2 WEEKS. *DERMABOND Prineo- This is a mesh tape dressing that is covered with glue. It should remain in place until the incision is properly healed, usually 10-14 days. This dressing is designed to naturally slough off. You may trim the excess mesh tape as it peels off. Incision may be briefly wet in a shower. Dry immediately by blotting with a clean, dry towel. Do not bath or swim until instructed by your doctor. Do not scratch, rub, or pick at the dressing. Do not apply any topical ointments or lotions until dressing is completely removed and/or instructed by your doctor. There may be a small piece of suture material at one end of your incision. Do not pull or trim this. If it is bothersome or catching on clothing, you may cover it with a band-aid. FOLLOW UP VISIT: If appointment is not already scheduled: Please call [facility] to make a follow-up appointment for 2 weeks after your surgery at . Pending Studies at Discharge: No Stand-Alone Forms: My [facility] Skilled Items Patient informed of condition?: Yes DNR: No Discharge Level of Care: Acute rehab Communicable Disease: No Discharge Prognosis: Improving Lines: None Urinary Catheter: No Medications and DC Order Prescriptions: New enoxaparin 40 mg/0.4 mL Syringe 40 mg subcut Q24H Qty: 14 RF: 0 acetaminophen 500 mg Tablet 1,000 mg PO Q8 30 Days Qty: 180 RF: 0 sennosides [Senokot] 8.6 mg Tablet 17.2 mg PO HS PRN (Reason: constipation) Qty: 28 RF: 0 oxycodone 5 mg Tablet 5 mg PO Q6H MDD 4 PRN (Reason: pain) Qty: 30 RF: 0 Continued (DME) CPAP Machine Misc See Rx Instructions .ROUTE .MEDSUPPLY Qty: 1 RF: 0 tadalafil [Cialis] 20 mg tablet 20 mg PO DAILY PRN (Reason: .) RF: 0 multivitamin Tablet 1 tab PO DAILY RF: 0 clonidine HCl 0.1 mg Tablet 0.1 mg PO HS RF: 0 methylphenidate HCl [Concerta] 36 mg Tablet Extended Release 24hr 36 mg PO QAM RF: 0 sennosides [Senokot] 8.6 mg Tablet 17.2 mg PO HS PRN (Reason: constipation) Qty: 28 RF: 0 Discontinued celecoxib [Celebrex] 200 mg Capsule 200 mg PO BID PRN (Reason: pain) Qty: 28 RF: 0 acetaminophen [Tylenol Extra Strength] 500 mg Tablet 1,000 mg PO Q8 PRN (Reason: pain) Qty: 90 RF: 0 Discharge Orders: Discharge Order (Routine); Ordered 04/09/20 Ordered By: Otf Wilson/Other Patient Handouts: DVT Post Op Prevention Admission Data Admit Date/Time: 04/07/20 14:21 Attending Provider: Remberto Villatoro Admit Provider: Remberto Villatoro Primary Care Provider: Alejandro Grover Other Providers: Diaz Bhatti Other Interventions: Discharge Summary Assessment (RN) Last Done: 04/09/20 12:39
== END 2020-04-09 13:45 | DRG 462 ==
LOC: ASU 07:42 → 3N 07:42 → OBSVTOIN 14:21

== ENCOUNTER 2022-04-06 06:04 | Observation (INO) ==
--- NOTE | 2022-03-31 10:58 | Anesthesiology Consultation ---
Date of Service March 31, 2022 Assessment & Plan (1) Encounter for pre-operative examination: Chart Review Chart Review: Acceptable Risk for Surgery and Patient NOT seen in Pre Admission Testing Consults Requested none History Surgery Operation Date: 04/06/22 13:25 Proposed Procedures p C4-C6 Anterior Cervical Discectomy Fusion, Spinal Cord Monitoring - Donis Dhaliwal DO Height/Weight Height: 5 ft 8.5 in Weight: 117.934 kg Allergies Allergy/AdvReac Type Severity Reaction Status Date / Time No Known Allergies Allergy Verified 03/31/22 10:17 Medications Home Medications Medication Instructions Recorded Confirmed Last Taken CPAP Machine #1 ea 03/21/19 07/11/19 Unknown tadalafil 20 mg tablet (Cialis) 20 mg PO UD PRN Sexual Activity 07/11/19 03/31/22 Unknown clonidine HCl 0.1 mg tablet 0.1 mg PO HS 03/20/20 03/31/22 04/06/20 21:30 dextroamphetamine-amphetamine 10 10 mg PO UD 09/21/21 03/31/22 Unknown mg tablet (Adderall) dextroamphetamine-amphetamine ER 25 mg PO QAM 09/21/21 03/31/22 Unknown 25 mg 24hr capsule,extend release (Adderall XR) meloxicam 15 mg tablet 15 mg PO QAM PRN Pain 09/21/21 03/31/22 Unknown sertraline 100 mg tablet 100 mg PO QAM 03/31/22 03/31/22 Unknown Past Medical History Medical History Attention deficit disorder (ADD) Bulging disc cervical History of kidney stones Hx of gout Obesity SYEDA (obstructive sleep apnea) CPAP-compliant Osteoarthritis Past Family History Family History Father Colorectal cancer Mother Dementia Breast cancer Other No family history of adverse response to anesthesia Past Surgical History Surgical History History of bilateral knee arthroplasty 04/07/20: SAB L4-L5 1 attempt + PNB. History of colonoscopy History of cystoscopy multiple History of lithotripsy multiple History of total hip arthroplasty Right DAVID: 04/08/19: SAB x 1 attempt at L3-L4 at [facility] History of vasectomy [place] teeth removed Social History Smoking Status: Never smoker Do You Dip or Chew Tobacco: No Hx Alcohol Use: Yes Alcohol type: beer and wine alcohol intake frequency: a few times a week Hx Substance Use: No substance use type: does not use Testing Laboratory Results Laboratory Tests 03/26/22 03/26/22 03/26/22 09:18 09:18 09:18 WBC 4.33 L Hgb 15.1 Hct 44.8 Plt Count 238 PT 10.4 INR 1.0 APTT 26.7 Sodium 141 Potassium 4.0 Chloride 106 Carbon Dioxide 28 BUN 24 H Creatinine 0.85 Glucose 87 Electrocardiogram Date: 09/22/21 DICTATED BY:Anthony Raymond MD Test Reason : Blood Pressure : / mmHG Vent. Rate : 070 BPM Atrial Rate : 070 BPM P-R Int : 160 ms QRS Dur : 086 ms QT Int : 418 ms P-R-T Axes : 072 -51 054 degrees QTc Int : 451 ms Normal sinus rhythm Left axis deviation Inferior infarct , age undetermined Abnormal ECG When compared with ECG of 14-MAR-2019 11:03, No significant change was found Confirmed by Anthony Raymond ([id number]) on 09/22/2021 2:08:11 PM
[~2022-04-06 06:04] MED LIST changes: -BUPIVACAINE 0.25% 30 ML VIAL ONE; -BUPIVACAINE 0.5 % 5 MG/1 ML PF 10ML VIAL ONE; -FAMOTIDINE 20 MG TAB PO SCH; +GABAPENTIN 600 MG DOSE PO SCH; -GABAPENTIN 900 MG DOSE PO SCH; +LR 15ML/HR IV SCH; -LR 500ML BOLUS, THEN 15ML/HR IV SCH; -METOCLOPRAMIDE HCL 10 MG TABLET PO SCH; -ROPIVACAINE 0.5% HCL/PF 150 MG, BUPIVACAINE 0.75% MPF 20 ML, EPINEPHrine 30MG/30ML (OR ... INSTIL SCH; -TRANEXAMIC ACID 1,000 MG **IV Intra-op IV SCH; -TRANEXAMIC ACID 1,000 MG **IV Pre-op IV SCH; -dexAMETHasone 4 MG TAB PO SCH
[2022-04-06] MEDS ORDERED: ONDANSETRON INJ 2 MG/ML 2 ML VIAL ONE (07:09)
[2022-04-06] MEDS ORDERED: DEXAMETHASONE SOD INJ 4 MG/ML VIAL ONE (07:09)
[2022-04-06] MEDS ORDERED: LIDOCAINE 2% MPF LOCAL 5 ML VIAL INFIL ONE (07:09)
[2022-04-06] MEDS ORDERED: fentaNYL citrate 100 MCG/2 ML VIAL ONE (07:09)
[2022-04-06] MEDS ORDERED: MIDAZOLAM HCL 1 MG/ML 2ML VIAL ONE (07:09)
[2022-04-06] MEDS ORDERED: PROPOFOL IV EMULSION 10 MG/ML 20 ML VIAL IV ONE (07:09)
[2022-04-06] MEDS ORDERED: ROCURONIUM BROMIDE 10 MG/ML 5 ML VIAL IV ONE (07:09)
[2022-04-06] MEDS ORDERED: ceFAZolin 330 MG/ML 1 GM VIAL ONE (07:14)
[2022-04-06] MEDS ORDERED: KETAMINE 50 MG/5 ML SYRINGE ONE (07:22)
--- NOTE | 2022-04-06 07:34 | History & Physical Bridge Note ---
Date of Service April 06, 2022 History & Physical Bridge Note I have examined the patient, reviewed the History & Physical and in the interval since the performance of the History & Physical I have noted the following changes of clinical significance: no changes noted
--- NOTE | 2022-04-06 07:35 | History & Physical Report ---
Date of Service April 06, 2022 Assessment & Plan (1) Cervical stenosis of spinal canal: Plan: Anterior cervical discectomy and fusion C4-C5 C5-C6 History of Present Illness Chief Complaint: Neck and arm pain Primary Care Provider: Montana Gómez MD This is a 56-year-old male who presents with chronic persistent neck and arm pain after failed extensive course of nonoperative care is here for surgical invention. Allergies Allergy/AdvReac Type Severity Reaction Status Date / Time No Known Allergies Allergy Verified 04/06/22 06:35 Home Medications Medication Instructions Recorded Confirmed Type CPAP Machine #1 ea 03/21/19 07/11/19 Rx tadalafil 20 mg tablet (Cialis) 20 mg PO UD PRN Sexual Activity 07/11/19 03/31/22 History clonidine HCl 0.1 mg tablet 0.1 mg PO HS 03/20/20 04/06/22 History dextroamphetamine-amphetamine 10 10 mg PO UD 09/21/21 04/06/22 History mg tablet (Adderall) dextroamphetamine-amphetamine ER 25 mg PO QAM 09/21/21 04/06/22 History 25 mg 24hr capsule,extend release (Adderall XR) meloxicam 15 mg tablet 15 mg PO QAM PRN Pain 09/21/21 04/06/22 History sertraline 100 mg tablet 100 mg PO QAM 03/31/22 04/06/22 History Past Med/Surg History Medical History Attention deficit disorder (ADD) Bulging disc cervical History of kidney stones Hx of gout Obesity SYEDA (obstructive sleep apnea) CPAP-compliant Osteoarthritis Surgical History History of bilateral knee arthroplasty 04/07/20: SAB L4-L5 1 attempt + PNB. History of colonoscopy History of cystoscopy multiple History of lithotripsy multiple History of total hip arthroplasty Right DAVID: 04/08/19: SAB x 1 attempt at L3-L4 at [facility] History of vasectomy [place] teeth removed Family History Father Colorectal cancer Mother Dementia Breast cancer Other No family history of adverse response to anesthesia Social History Smoking Status: Never smoker Second Hand Exposure: No; Do You Dip or Chew Tobacco: No; Hx Alcohol Use: Yes Alcohol type: beer and wine Hx Substance Use: No Preferred Language: Upper Sorbian Communication Ability: Effective Visual Impairment: No Limitations Windlasser Required: No Beliefs That Will Affect Care: None marital status: Current Living Situation: Spouse Feels Safe at Home: Yes Safety Concerns: Feels Safe At This Time Assistive Devices: CPAP and Glasses Physical Exam Physical Exam: Patient is alert and oriented Heart regular rhythm Lungs clear Results & Data Results & Data ([facility]) Vital Signs (Past 12 Hours) Vital Signs Temp Pulse Resp BP Pulse Ox O2 Del Method 04/06/22 06:41 Room Air, CPAP 04/06/22 06:38 36.6 C 59 L 20 171/94 H 96 Room Air
[2022-04-06] MEDS ORDERED: ONDANSETRON INJ 2 MG/ML 2 ML VIAL IV PRN ×2 (08:07→11:43)
[2022-04-06] MEDS ORDERED: PROMETHAZINE HCL 12.5 MG in SODIUM CHLORIDE 0.9% 50 ML IV PRN ×2 (08:07→11:43)
[2022-04-06] MEDS ORDERED: ePHEDrine sulfate 50 MG/ML AMP IV PRN (08:07)
[2022-04-06] MEDS ORDERED: ATROPINE SULFATE 0.1 MG/ML 10ML SYR IV PRN (08:07)
[2022-04-06] MEDS ORDERED: HYDROmorphone INJ 2 MG/ML SYR/VIAL IV PRN (08:07)
[2022-04-06] MEDS ORDERED: FLOSEAL HEMOSTATIC MATRIX 10ML TOP ONE (09:06)
[2022-04-06] MEDS ORDERED: NEOSTIGMINE METHYLSULFATE 1 MG/ML 10ML VIAL ONE (09:09)
[2022-04-06] MEDS ORDERED: GLYCOPYRROLATE 0.2 MG/ML VIAL ONE (09:09)
--- NOTE | 2022-04-06 09:12 | Operative Report ---
Post Operative Report Pre & Post Diagnosis Operation Date: 04/06/22 07:45 Pre-Op Diagnosis: Cervical spinal stenosis with herniated nucleus pulposus and radiculopathy Post-Op Diagnosis: Same I identified the patient and participated in the time-out.: Yes Procedure Operation Date: 04/06/22 07:45 Actual Procedures #1 anterior cervical discectomy with bilateral foraminotomies C4-C5 C5-C6. #2 anterior cervical arthrodesis C4-C5 C5-C6. #3 placement of Spira 9 mm cage filled with I factor at C4-C5 C5-C6. #4 application of K2 M plate and screws from C4-C6. Surgeon Donis Dhaliwal, DO Historian Research Assistant Lisa Jack Estimated Blood Loss 10 Findings See Below The patient is 5 foot 8 inches tall weighing over 121 kg with a BMI in excess of 40. Patient's body habitus did contribute to significant technical difficulty with patient positioning exposure and right longer retractors. This at least 50% increased operative time. Specimens None Indications This is a 56-year-old male who presents above-mentioned diagnosis after failed course of nonoperative care is here for surgical invention. Description of Procedure Patient was met with identified informed consent obtained. Patient was then taken to the operative suite underwent intubation placed in supine position the Danial table at [place] tunnel heading inspector. All bony prominences well-padded eyes inspected to ensure no external pressure placed upon the. This point the anterior cervical spine was prepped and draped in a sterile fashion. The assistance of fluoroscopy identified the C5 vertebral body and a transverse incision was placed along the right anterior aspect of the cervical spine overlying his region. Blunt dissection with assistance of bipolar electrocautery was then performed down to and exposing the anterior cervical spine from C4-C6. Self-retaining retractors placed. Then formed a complete discectomy of C4-C5 out to the uncovertebral joints bilaterally. [place] distracting pins were utilized to assist in visualization. Removed all posterior annular fibers longitudinal ligament bilateral foraminotomies performed. Endplates burred to subcortical bleeding bone and a 9 mm spiral cage filled with I factor tapped in position. After this complete the distracting apparatus was removed and I proceeded to see 5 C6. Again complete discectomy performed removed all posterior fibers longitudinal ligament performed bilateral foraminotomies. Endplates burred to subcortical bleeding bone and again a 9 mm spiral cage filled with I factor tapped in position. Distracting apparatus was removed and all anterior osteophytes produce with cortical surface and a K2 M plate and screws applied with the assistance of fluoroscopy. The incision was then copiously irrigated explored to ensure no damage to surrounding structures or remaining bleeding. 10 round MIGUELINA drain inserted. The incision was then closed with 2-0 Vicryl fascia and 4 Monocryl for final closure. Steri-Strip sterile dressing placed. Patient waken taken to PACU in stable condition. Please note spinal cord monitoring was utilized at the procedure no changes noted. Lastly Lisa Jack was present at the entire surgeon while the patient positioning complex portions of the surgery and final skin closure. I attest to the content of the Intraoperative Record and any orders documented therein. Any exceptions are noted below.
[2022-04-06] MEDS: fentaNYL citrate 100 MCG/2 ML VIAL IV PRN ×4 (10:00→10:59)
--- NOTE | 2022-04-06 10:32 | Fluoroscopy Report ---
FL cervical 2-3V HISTORY: 56 years-old Male ACDF C4-C6 status post cervical spine fusion COMPARISON: None TECHNIQUE: 3 spot fluoroscopic images of the cervical spine were obtained utilizing 12.7 seconds fluo roscopy time FINDINGS: Anterior plate and screw fusion hardware with discectomy changes noted at what appears to be the C4-C 6 levels. The visualized hardware appears intact. Radiopaque surgical sponge is noted within the ante rior operative bed. Endotracheal tube is present. IMPRESSION: Fluoroscopic assistance as above. ACT 112: Negative or not required by law. The above report was generated using voice recognition software. It may contain grammatical, syntax o r spelling errors. Electronically signed by: Romulo Roman M.D. 04/06/2022 10:31 AM
--- NOTE | 2022-04-06 11:17 | Anesthesiology Progress Note ---
Date of Service April 06, 2022 Anesthesia Post Procedure Vital Signs Vital Signs: Temp Pulse Pulse Resp BP Pulse Ox O2 Del Method 04/06/22 11:00 50 L 20 152/93 H 95 Nasal Cannula 04/06/22 10:50 76 14 140/92 97 Nasal Cannula 04/06/22 10:40 67 24 156/89 H 95 Nasal Cannula 04/06/22 10:30 36.5 C 52 L 20 157/98 H 97 Oxymask 04/06/22 10:20 50 L 18 140/81 97 Oxymask 04/06/22 10:10 51 L 19 136/81 94 Oxymask 04/06/22 10:00 54 L 24 153/89 H 95 Oxymask 04/06/22 09:50 58 L 20 162/91 H 99 Oxymask 04/06/22 09:40 55 L 17 182/96 H 99 Oxymask 04/06/22 09:30 36.1 C L 64 20 172/94 H 94 Nasal Cannula 04/06/22 06:41 Room Air, CPAP 04/06/22 06:38 36.6 C 59 L 20 171/94 H 96 Room Air O2 Flow Rate 04/06/22 11:00 2 04/06/22 10:50 2 04/06/22 10:40 2 04/06/22 10:30 4 04/06/22 10:20 4 04/06/22 10:10 4 04/06/22 10:00 4 04/06/22 09:50 4 04/06/22 09:40 6 04/06/22 09:30 4 04/06/22 06:41 04/06/22 06:38 Pain Intensity Bilateral Neck: Pain Intensity: 5 Transfer of Care Handoff Completed per policy Notes Mental Status: alert / awake / arousable and participated in evaluation Patient Amnestic to Procedure: Yes Nausea / Vomiting: adequately controlled Pain: adequately controlled Airway Patency, RR, SpO2: stable & adequate BP & HR: stable & adequate Hydration State: stable & adequate Anesthetic Complications: no major complications apparent
[2022-04-06] MEDS ORDERED: NALOXONE HCL 0.4 MG/1 ML VIAL/CARP IV PRN (11:43)
[2022-04-06] MEDS ORDERED: traMADol HCL 50 MG TABLET PO PRN (11:43)
[2022-04-06] MEDS ORDERED: ACETAMINOPHEN 500 MG TAB PO PRN (11:43)
[2022-04-06] MEDS ORDERED: LORazepam 0.5 MG TAB PO PRN (11:43)
[2022-04-06] MEDS ORDERED: DO NOT ADMINISTER FLU VACCINE PRN (11:43)
[2022-04-06] MEDS ORDERED: METOCLOPRAMIDE HCL INJ 5 MG/ML 2 ML VIAL IV PRN (11:43)
[2022-04-06] MEDS ORDERED: HYDROmorphone INJ 0.5 MG/0.5 ML SYR IV PRN (11:43)
[2022-04-06] MEDS ORDERED: ONDANSETRON 4 MG OD TAB PO PRN (11:43)
[2022-04-06] MEDS ORDERED: ALUMINUM/MAGNESIUM SUSP 30 ML UDC PO PRN (11:43)
[2022-04-06] MEDS ORDERED: RACEPINEPHRINE 2.25% NEBU SOLN 0.5 ML VIAL INH PRN (11:43)
[2022-04-06] MEDS ORDERED: ACETAMINOPHEN 1,000 MG/100 ML VIAL IV PRN (11:43)
[2022-04-06] MEDS ORDERED: DO NOT ADMINISTER PNEUMOCOCCAL VACCINE PRN (11:43)
[2022-04-06] MEDS ORDERED: diphenhydrAMINE Capsule 25 MG CAP PO PRN (11:43)
[2022-04-06] MEDS ORDERED: MAGNESIUM HYDROXIDE SUSP 30 ML UDC PO PRN (11:43)
[2022-04-06] MEDS ORDERED: hydrOXYzine HCl 25 MG TAB PO PRN (11:43)
[2022-04-06] MEDS ORDERED: LORazepam 0.5 MG in SYRINGE 0 ML IV PRN (11:43)
[2022-04-06] MEDS ORDERED: FAMOTIDINE 20 MG TAB PO PRN (11:43)
[2022-04-06] MEDS ORDERED: dexAMETHasone 8 MG in SYRINGE 0 ML IV PRN (11:43)
[2022-04-06] MEDS ORDERED: bisacodyL 10 MG SUPP PR PRN (11:43)
[2022-04-06] MEDS ORDERED: SOD PHOSPHATE/SOD BIPHOSPHATE ENEMA 132 ML BTL PR PRN (11:43)
--- NOTE | 2022-04-06 12:52 | Consultation ---
Date of Consultation April 06, 2022 Assessment & Plan (1) S/P cervical spinal fusion: (2) Cervical stenosis of spinal canal: Post op day# 0 S/P ACDF by Dr Madhuri HODGE#10ml -pain management per ortho -wound management per ortho -PT/OT as appropriate -DVT prophylaxis per ortho -incentive spirometry -monitor H&H for acute blood loss anemia; pre-op Hgb: 15 (3) PTSD (post-traumatic stress disorder): (4) Attention deficit disorder (ADD): (5) Depression: -Continue sertraline, Adderall, clonidine -Follows with [place] outpatient (6) SYEDA (obstructive sleep apnea): -Uses CPAP HS -Will check with ortho spine to see when can resume CPAP use DVT Prophylaxis -SCDs per ortho Disposition per primary team Follows with Dr Gómez for routine care Pt was seen and care coordinated with Dr Ugalde. See addendum Thank you for this consultation. We will follow the patient with you during their hospital stay. You can reach a [facility] via [employer] Supervising Physician Co-Signing Physician Notes I have seen and examined the patient and have discussed the case with the provider above. I agree with the assessment and plan as stated. 56 yo M s/p cerical surgery with anterior approach. Has voice hoarseness at baseline, which is present today. Denies uncontrolled pain and reports hands are not numb or painful. Appears pleased with his surgical result. Heart and lung exam is unremarkable. He has a drain in place from incision site draining serosanguinous fluid. Mentating clearly and no increased respiratory distress. Agree with plan above. Thank you for this consultation. DO Aftab History of Present Illness Requesting Physician: Dr Dhaliwal Reason for Consultation: Post op medical management Attending Physician: Donis Dhaliwal DO History of Present Illness Patient is 56 y/o M with PMH PTSD, ADHD, depression, SYEDA, obesity seen in medical consultation s/p ACDF today by Dr. Dhaliwal. Patient reports is doing well. Prior to surgery had RUE pain and paresthesias which he reports has improved postop. Has neck pain that has decreased since receiving pain medication. He is eating ice chips without difficulty. Has urinated twice postop. Last BM this morning. Denies fever/chills, diaphoresis, N/V/D/C, MAZARIEGOS, dizziness, syncope, vision changes, CP, SOB, cough, choking, rhinorrhea, abdomin al pain, extremity weakness, extremity edema, rashes, urinary symptoms. Allergies Allergy/AdvReac Type Severity Reaction Status Date / Time No Known Allergies Allergy Verified 04/06/22 06:35 Home Medications Medication Instructions Recorded Confirmed Type CPAP Machine #1 ea 03/21/19 04/06/22 Rx tadalafil 20 mg tablet (Cialis) 20 mg PO UD PRN Sexual Activity 07/11/19 04/06/22 History clonidine HCl 0.1 mg tablet 0.1 mg PO HS 03/20/20 04/06/22 History dextroamphetamine-amphetamine 10 10 mg PO DAILY 09/21/21 04/06/22 History mg tablet (Adderall) dextroamphetamine-amphetamine ER 25 mg PO QAM 09/21/21 04/06/22 History 25 mg 24hr capsule,extend release (Adderall XR) meloxicam 15 mg tablet 15 mg PO QAM PRN Pain 09/21/21 04/06/22 History sertraline 100 mg tablet 100 mg PO QAM 03/31/22 04/06/22 History oxycodone 5 mg tablet 5 mg PO Q6H PRN pain, severe #20 04/06/22 Rx tabs tramadol 50 mg tablet 50 mg PO Q6H PRN pain, moderate 04/06/22 Rx #20 tabs trazodone 50 mg tablet 50 mg PO HS PRN Insomnia 04/06/22 04/06/22 History triamterene 37.5 1 tab PO DAILY 04/06/22 04/06/22 History mg-hydrochlorothiazide 25 mg tablet Patient History Medical History (Updated 04/06/22 @ 13:47 by Moni Lin PA-C) Attention deficit disorder (ADD) Bulging disc cervical Depression History of kidney stones Hx of gout Obesity SYEDA (obstructive sleep apnea) CPAP-compliant Osteoarthritis PTSD (post-traumatic stress disorder) Surgical History (Updated 04/06/22 @ 13:47 by Moni Lin PA-C) History of bilateral knee arthroplasty 04/07/20: SAB L4-L5 1 attempt + PNB. History of colonoscopy History of cystoscopy multiple History of lithotripsy multiple History of total hip arthroplasty Right DAVID: 04/08/19: SAB x 1 attempt at L3-L4 at [facility] History of vasectomy [place] teeth removed Family History Father Colorectal cancer Mother Dementia Breast cancer Other No family history of adverse response to anesthesia Social History Smoking Status: Never smoker Second Hand Exposure: No; Do You Dip or Chew Tobacco: No; Hx Alcohol Use: Yes Alcohol type: beer and wine Hx Substance Use: No Preferred Language: Slovak Communication Ability: Effective Visual Impairment: No Limitations Assistant Account Executive Required: No Beliefs That Will Affect Care: None marital status: Current Living Situation: Spouse Feels Safe at Home: Yes Safety Concerns: Feels Safe At This Time Assistive Devices: CPAP and Glasses Review of Systems Review of Systems: All systems reviewed & are unremarkable except as noted in HPI & below Physical Exam Physical Exam: General: no distress, overweight Head: normocephalic, atraumatic Eyes: conjunctiva non-injected, anicteric ENT: normal inspection external ears, nose, mucous membranes moist Neck: C-collar in place, anterior neck with surgical dressing in place that is dry. MIGUELINA drain in place. supple, trachea midline Lungs: clear, no respiratory distress, no wheezing/rhonchi/rales CV: RRR, no murmur, no pretibial edema Abd: protuberant, normal BS, soft, non-tender Ext: no cyanosis, no calf tenderness Neuro: A&O x 3, no focal deficits noted, normal affect Skin: warm, dry Results & Data ([facility]) Vital Signs (Past 12 Hours) Vital Signs Temp Pulse Pulse Resp BP Pulse Ox O2 Del Method 04/06/22 12:00 36.9 C 58 L 18 170/96 H 96 Nasal Cannula 04/06/22 11:45 79 20 119/95 95 Nasal Cannula 04/06/22 11:30 51 L 17 145/78 H 96 Nasal Cannula 04/06/22 11:15 48 L 15 126/80 95 Nasal Cannula 04/06/22 11:00 50 L 20 152/93 H 95 Nasal Cannula 04/06/22 10:50 76 14 140/92 97 Nasal Cannula 04/06/22 10:40 67 24 156/89 H 95 Nasal Cannula 04/06/22 10:30 36.5 C 52 L 20 157/98 H 97 Oxymask 04/06/22 10:20 50 L 18 140/81 97 Oxymask 04/06/22 10:10 51 L 19 136/81 94 Oxymask 04/06/22 10:00 54 L 24 153/89 H 95 Oxymask 04/06/22 09:50 58 L 20 162/91 H 99 Oxymask 04/06/22 09:40 55 L 17 182/96 H 99 Oxymask 04/06/22 09:30 36.1 C L 64 20 172/94 H 94 Nasal Cannula 04/06/22 06:41 Room Air, CPAP 04/06/22 06:38 36.6 C 59 L 20 171/94 H 96 Room Air O2 Flow Rate 04/06/22 12:00 2 04/06/22 11:45 2 04/06/22 11:30 2 04/06/22 11:15 2 04/06/22 11:00 2 04/06/22 10:50 2 04/06/22 10:40 2 04/06/22 10:30 4 04/06/22 10:20 4 04/06/22 10:10 4 04/06/22 10:00 4 04/06/22 09:50 4 04/06/22 09:40 6 04/06/22 09:30 4 04/06/22 06:41 04/06/22 06:38 Medications Administered Current Inpatient Medications Acetaminophen (Acetaminophen 500 Mg Tab) 1,000 mg PO Q8H PRN PRN Reason: MILD Pain Scale 1,2,3 & Pre PT Stop: 05/06/22 11:42 Al Hydrox/Mg Hydrox/Simethicone (Aluminum/Magnesium Susp 30 Ml Udc) 30 ml PO Q6H PRN PRN Reason: Dyspepsia Stop: 05/06/22 11:42 Amphetamine/Dextroamphetamine (Amphetamine Asp/Sulf/Dextramph 10 Mg Tab) 10 mg PO TODAY@1400 [facility] Stop: 04/20/22 13:59 Last Admin: 04/06/22 14:40 Dose: 10 mg Amphetamine/Dextroamphetamine (Amphetamine Asp/Sulf/Dextramph Er 20 Mg Cap) 20 mg PO TODAY@0800 [facility] Stop: 04/21/22 07:59 Amphetamine/Dextroamphetamine (Dextroamphetamine/Amphetamine Er 5 Mg Cap) 5 mg PO TODAY@0800 PERRY Stop: 04/21/22 07:59 Bisacodyl (Bisacodyl 10 Mg Supp) 10 mg OH DAILY PRN PRN Reason: Constipation Stop: 05/06/22 11:42 Clonidine HCl (Clonidine Hcl 0.1 Mg Tab) 0.1 mg PO HS PERRY Stop: 05/06/22 20:59 Diphenhydramine HCl (Diphenhydramine Capsule 25 Mg Cap) 25 mg PO Q6H PRN PRN Reason: Allergic Rhinitis/Insomnia Stop: 05/06/22 11:42 Epinephrine (Racepinephrine 2.25% Nebu Soln 0.5 Ml Vial) 0.5 ml INH NOW PRN PRN Reason: If stridor present Famotidine (Famotidine 20 Mg Tab) 20 mg PO Q12H PRN PRN Reason: Dyspepsia Stop: 05/06/22 11:42 Hydromorphone HCl (Hydromorphone Inj 0.5 Mg/0.5 Ml Syr) 0.5 mg IV Q3H PRN PRN Reason: MODERATE Pain (Scale 4,5,6) & Pre PT Stop: 04/20/22 11:42 Hydromorphone HCl (Hydromorphone Inj 1 Mg/Ml Syringe) 1 mg IV Q3H PRN PRN Reason: SEVERE Pain (Scale 7,8,9,10) Stop: 04/20/22 11:42 Last Admin: 04/06/22 16:30 Dose: 1 mg Hydroxyzine HCl (Hydroxyzine Hcl 25 Mg Tab) 25 mg PO Q8H PRN PRN Reason: Anxiety Stop: 05/06/22 11:42 Lactated Ringer's (Lr) 1,000 mls @ 15 mls/hr IV .Q24H PERRY Stop: 04/07/22 05:59 Last Infusion: 04/06/22 12:47 Dose: Infused Acetaminophen (Ofirmev) 1,000 mg in 100 mls @ 400 mls/hr IV Q8H PRN PRN Reason: Pain Rating 1-3 & Pre PT Stop: 04/07/22 11:44 Dexamethasone 8 mg/ Syringe 2 mls @ 1 mls/min IV NOW PRN PRN Reason: If stridor present Lactated Ringer's (Lr) 1,000 mls @ 150 mls/hr IV .Q6H40M PERRY Stop: 05/06/22 11:42 Last Admin: 04/06/22 19:37 Dose: 150 mls/hr Promethazine HCl 12.5 mg/ (Sodium Chloride) 50.5 mls @ 202 mls/hr IV Q6H PRN PRN Reason: Nausea &/or Vomiting Stop: 05/06/22 11:42 Cefazolin Sodium (Ancef 2000mg) 2,000 mg in 15 mls @ 3.75 mls/min IV Q8H PERRY; Protocol Stop: 04/06/22 23:18 Last Admin: 04/06/22 16:36 Dose: 3.75 mls/min Lorazepam 0.5 mg/ Syringe 0.5 mls @ 2 mls/min IV Q8H PRN PRN Reason: Sedation/Anxiety Stop: 05/06/22 11:42 Dexamethasone 6 mg/ Syringe 1.5 mls @ 1 mls/min IV DAILY [facility] Stop: 04/09/22 09:02 Influenza Virus Vaccine Quadrival (Do Not Administer Flu Vaccine) 1 each N/A PRN PRN PRN Reason: Notification Stop: 05/06/22 11:42 Lorazepam (Lorazepam 0.5 Mg Tab) 0.5 mg PO Q8H PRN PRN Reason: Sedation/Anxiety Stop: 05/06/22 11:42 Magnesium Hydroxide (Magnesium Hydroxide Susp 30 Ml Udc) 30 ml PO Q24H PRN PRN Reason: Constipation Stop: 05/06/22 11:42 Metoclopramide HCl (Metoclopramide Hcl Inj 5 Mg/Ml 2 Ml Vial) 10 mg IV Q6H PRN PRN Reason: Nausea &/or Vomiting Stop: 05/06/22 11:42 Naloxone HCl (Naloxone Hcl 0.4 Mg/1 Ml Vial/Carp) 0.1 mg IV Q5M PRN PRN Reason: Oversedation/Resp depression Stop: 05/06/22 11:42 Ondansetron HCl (Ondansetron Inj 2 Mg/Ml 2 Ml Vial) 4 mg IV Q6H PRN PRN Reason: Nausea &/or Vomiting Stop: 05/06/22 11:42 Ondansetron HCl (Ondansetron 4 Mg Od Tab) 4 mg PO Q6H PRN PRN Reason: Nausea Stop: 05/06/22 11:42 Oxycodone HCl (Oxycodone Hcl Ir 5 Mg Tab (Immediate Release)) 5 - 10 mg PO Q4H PRN PRN Reason: Pain & Pre PT Stop: 04/20/22 11:42 Last Admin: 04/06/22 19:41 Dose: 10 mg Pneumococcal Polyvalent Vaccine (Do Not Administer Pneumococcal Vaccine) 1 each N/A PRN PRN PRN Reason: Notification Stop: 05/06/22 11:42 Polyethylene Glycol (Polyethylene (Miralax) 17 Gm Pack) 17 gm PO Q6 PERRY Stop: 05/07/22 05:59 Senna/Docusate Sodium (Docusate Sodium/Senna 50/8.6mg Tab) 2 tab PO HS PERRY Stop: 05/06/22 20:59 Sertraline HCl (Sertraline Hcl 100 Mg Tablet) 100 mg PO QAM PERRY Stop: 05/07/22 08:59 Sodium Biphosphate/Sodium Phosphate (Sod Phosphate/Sod Biphosphate Enema 132 Ml Btl) 132 ml OH ONE PRN PRN Reason: Constipation Stop: 05/06/22 11:42 Tramadol HCl (Tramadol Hcl 50 Mg Tablet) 50 - 100 mg PO Q4H PRN PRN Reason: Moderate-Severe pain & Pre PT Stop: 05/06/22 11:42 Trazodone HCl (Trazodone Hcl 50 Mg Tab) 50 mg PO HS PRN PRN Reason: Insomnia Stop: 05/06/22 13:38
[2022-04-06] MEDS: LACTATED RINGER'S 1,000 ML IV SCH ×2 (12:56→19:37)
[2022-04-06] MEDS: HYDROmorphone INJ 1 MG/ML SYRINGE IV PRN ×2 (12:58→16:30)
[2022-04-06] MEDS ORDERED: traZODone HCL 50 MG TAB PO PRN (13:39)
[2022-04-06] MEDS ORDERED: AMPHETAMINE ASP/SULF/DEXTRAMPH 10 MG TAB PO SCH (14:00)
[2022-04-06] MEDS: ceFAZolin 2000MG 2,000 MG/15 ML SYR IV SCH ×2 (16:36→23:09)
[2022-04-06] MEDS: oxyCODONE HCL IR 5 MG TAB (IMMEDIATE RELEASE) PO PRN (19:41)
[2022-04-06] MEDS ORDERED: cloNIDine HCL 0.1 MG TAB PO SCH (21:00)
[2022-04-06] MEDS ORDERED: DOCUSATE SODIUM/SENNA 50/8.6MG TAB PO SCH (21:00)
[2022-04-07] MEDS: LACTATED RINGER'S 1,000 ML IV SCH (00:50)
[2022-04-07] MEDS: oxyCODONE HCL IR 5 MG TAB (IMMEDIATE RELEASE) PO PRN ×3 (01:37→14:10)
[2022-04-07] MEDS: POLYETHYLENE (MIRALAX) 17 GM PACK PO SCH ×2 (05:45→13:12)
[2022-04-07 06:46] LABS: Hematocrit (blood only) 38.5 % (40.1-51.0); Hemoglobin 13.1 g/dl (14.0-18.0); Mean Corpuscular Hemoglobin 31.6 pg (25.0-34.0); Mean Platelet Volume 9.7 fL (9.4-12.4); Platelet Count 233 K/uL (130-400); RDW Coefficient of Variation 12.4 % (11.5-14.5); RDW Standard Deviation 42.7 fL (36.4-46.3); Red Blood Count 4.14 M/uL (4.63-6.08); White Blood Count 7.79 K/ul (4.8-10.8)
[2022-04-07 07:05] LABS: Calcium 8.6 mg/dl (8.5-10.1); Est GFR (African American) 126.9 ml/min; Est GFR (Non-African American) 109.5 ml/min; Potassium 3.6 mmol/L (3.5-5.1)
[2022-04-07] MEDS ORDERED: DEXTROAMPHETAMINE/AMPHETAMINE ER 5 MG CAP PO SCH (08:00)
[2022-04-07] MEDS ORDERED: AMPHETAMINE ASP/SULF/DEXTRAMPH ER 20 MG CAP PO SCH (08:00)
[2022-04-07] MEDS ORDERED: dexAMETHasone 6 MG in SYRINGE 0 ML IV SCH (09:00)
[2022-04-07] MEDS ORDERED: SERTRALINE HCL 100 MG TABLET PO SCH (09:00)
--- NOTE | 2022-04-07 11:08 | Discharge Summary ---
Date of Service April 07, 2022 Admission HPI Per Admitting Provider This is a 56-year-old male who presents with chronic persistent neck and arm pain after failed extensive course of nonoperative care is here for surgical invention. Principal Diagnosis Cervical spinal stenosis with radiculopathy Discharge Data Allergies Allergy/AdvReac Type Severity Reaction Status Date / Time No Known Allergies Allergy Verified 04/06/22 06:35 Consultations 04/06/22 11:43 Consult Hospitalist Routine Procedures Performed Operation Date: 04/06/22 07:45 Actual Procedures p C4-C6 Anterior Cervical Discectomy Fusion, Spinal Cord Monitoring(Not Applicable) - Donis Dhaliwal DO Ordered Studies 04/06/22 07:45 FL cervical 2-3V Routine Hospital Course (1) Cervical stenosis of spinal canal: Patient 1 anterior cervical discectomy and fusion tolerated this well was taken to orthopedic floor postoperatively postop day 1 he was up and ambulating. Swallowing well. Struggling with some hoarseness. Is excellent strength testing and recovery of his radiculopathy. Subsequently was discharged home. Discharge orders instructions from the chart for further review. Total Time Total Time Spent Total Time Spent (In Minutes): 20 minutes Discharge Plan Discharge Items Patient Disposition: Home - Self-Care Reason For Visit: spinal Stenosis, Cervical Region Discharge Diagnosis: Cervical radiculopathy Activity: As commented below Non-emergency contact: Primary Care Provider Call non-emergency contact if: you have any medication questions Follow-up/Referrals: Montana Gómez MD [Primary Care Provider] - Diet: Regular Addtl Attending Provider Instructions: ACTIVITY RECOMMENDATIONS: SELF CARE INSTRUCTIONS AFTER CERVICAL FUSIONS 1. No smoking. Smoking drastically decreases the chance of a solid fusion. 2. No bending, lifting more than 5 pounds, or twisting (roll like a log when turning in bed). 3. You may shower 3 days after surgery. Thoroughly dry wound. Do not soak in the tub. 4. Cervical collar: Must be worn at all times including sleeping. You may remove the brace only to bath, eat and if you are sitting in a recliner. 5. Please walk as much as you can for exercise. Gradually increase the distance that you walk as your endurance increases. SPECIAL CARE INSTRUCTIONS: VERY IMPORTANT TO READ AND REVIEW A. Do not take any anti-inflammatory medications (i.e. Indocin, Advil, Aspirin, Naprosyn, Aleve, Motrin, etc.) as these may inhibit the chance of a solid fusion. Tylenol is okay to take. B. Your surgical incision has been closed with a cosmetic suture under the skin that will dissolve in about 6 weeks. In 14 days, you can use a pair of clean scissors and cut the suture that is left outside of the skin at the ends of your incision. C. Complications are uncommon, but please contact us if you have any signs or symptoms of: 1. wound infection (fever higher than 102.5 degrees F, redness, separation of wound, drainage, or increasing pain from the incision) 2. blood clots in legs (pain, swelling, redness and warmth in legs) 3. urinary tract infection (fever higher than 102.5 degrees, burning upon urination or increased frequency of urination) 4. nerve problems (inability to walk on your toes or heels, numbness, loss of bowel or bladder control) 5. any other symptoms that concern you. D. Please call the office at if you have any concerns or questions about your operation or recovery. MANAGING PAIN AFTER SPINAL SURGERY 1. Narcotic medication is intended for short-term use and will be provided for surgical pain. Surgical pain usually lasts for a period of 4-6 weeks. Narcotic medication includes Percocet, Vicodin, Darvocet, Tylenol #3 or Lortab. 2. Longer-term pain is more appropriately treated with non-narcotic medication such as Tylenol ES. 3. Muscle spasm is not appropriately treated with narcotics. Muscle relaxers such as Soma, Flexeril or Skelaxin can be used along with Tylenol ES. 4. Remember that we all live with some "aches and pains". This is not unusual or uncommon after an injury or as we get older. 5. We will provide appropriate medication within the normal guidelines of their prescribed use. We will also be very cautious and aware of potential abuse and extended duration of patients' medication needs. 6. Please allow 2-3 days to process refills. Prescriptions will not be mailed but must be picked up at the office. FOLLOW UP VISIT: Keep your scheduled follow-up appointment. Any questions, please call the office at . Pending Studies at Discharge: No Stand-Alone Forms: [facility], Smoking Cessation Medications and DC Order Prescriptions: New tramadol 50 mg tablet 50 mg PO Q6H PRN (Reason: pain, moderate) Qty: 20 0RF oxycodone 5 mg tablet 5 mg PO Q6H PRN (Reason: pain, severe) Qty: 20 0RF Continued (DME) CPAP Machine Misc See Rx Instructions .ROUTE .MEDSUPPLY Qty: 1 0RF Rx Instructions: CPAP 9 CM. HEATED HUMIDITY. CHATO 99. CARE PLUS O2 tadalafil [Cialis] 20 mg tablet 20 mg PO UD PRN (Reason: Sexual Activity) clonidine HCl 0.1 mg Tablet 0.1 mg PO HS meloxicam 15 mg Tablet 15 mg PO QAM PRN (Reason: Pain) dextroamphetamine-amphetamine [Adderall] 10 mg Tablet 10 mg PO DAILY Rx Instructions: takes around 2pm dextroamphetamine-amphetamine [Adderall XR] 25 mg Capsule,Extended Release 24hr 25 mg PO QAM sertraline 100 mg Tablet 100 mg PO QAM trazodone 50 mg tablet 50 mg PO HS PRN (Reason: Insomnia) triamterene-hydrochlorothiazid 37.5-25 mg tablet 1 tab PO DAILY Discharge Orders: Discharge Order (Routine); Ordered 04/07/22 Ordered By: Donis Dhaliwal Admission Data Admit Date/Time: 04/06/22 09:16 Attending Provider: Donis Dhaliwal Admit Provider: Donis Dhaliwal Primary Care Provider: [place] Gómez Other Providers: Tatiana Ugalde ; Davey Proctor
--- NOTE | 2022-04-07 11:49 | Hospitalist Progress Note ---
Date of Service April 07, 2022 Assessment & Plan (1) S/P cervical spinal fusion: (2) Cervical stenosis of spinal canal: Plan: Post op day# 1 S/P ACDF by Dr Madhuri HODGE#10ml -pain management per ortho -wound management per ortho -PT/OT as appropriate -DVT prophylaxis per ortho -incentive spirometry -monitor H&H for acute blood loss anemia; pre-op Hgb: 15 - recovering well - dispo per ortho (3) PTSD (post-traumatic stress disorder): (4) Attention deficit disorder (ADD): (5) Depression: Plan: -Continue sertraline, Adderall, clonidine -Follows with [facility] [facility] outpatient (6) SYEDA (obstructive sleep apnea): Plan: -Uses CPAP HS DVT Prophylaxis -SCDs per ortho Disposition per primary team Follows with Dr Gómez for routine care Thank you for this consultation. We will follow the patient with you during their hospital stay. You can reach a member of the [facility] Team 21/11 via [employer] Admission and Anticipated Discharge Date Admission Date: April 06, 2022 Subjective Patient is POD#1 with symptom improvement. REports improvement in pain, numbness, weakness of right UE after surgery. Has been ambulating well, having flatus, no BM yet. Denies chest pain, shortness of breath, n/v/d. Tolerating diet well. Review of Systems Review of Systems: All systems reviewed & are unremarkable except as noted in Subjective Physical Exam Physical Exam: General: no distress, overweight Head: normocephalic, atraumatic Eyes: conjunctiva non-injected, anicteric ENT: normal inspection external ears, nose, mucous membranes moist Neck: C-collar in place, anterior neck with surgical dressing in place that is dry. MIGUELINA drain in place. supple, trachea midline Lungs: clear, no respiratory distress, no wheezing/rhonchi/rales CV: RRR, no murmur, no pretibial edema Abd: protuberant, normal BS, soft, non-tender Ext: no cyanosis, no calf tenderness Neuro: A&O x 3, no focal deficits noted, normal affect Skin: warm, dry Results & Data Results & Data ([facility]) Vital Signs (Past 12 Hours) Vital Signs Temp Pulse Pulse Resp BP Pulse Ox O2 Del Method 04/07/22 11:00 62 18 97 Room Air 04/07/22 07:40 36.6 C 58 L 18 144/72 H 98 Nasal Cannula 04/07/22 05:33 36.5 C 54 L 16 145/82 H 98 Nasal Cannula, CPAP 04/07/22 03:00 60 18 98 Nasal Cannula 04/07/22 03:30 36.6 C 55 L 18 142/78 H 99 Nasal Cannula 04/07/22 01:30 36.4 C L 53 L 16 134/74 98 Room Air, BiPAP O2 Flow Rate 04/07/22 11:00 04/07/22 07:40 2 04/07/22 05:33 2 04/07/22 03:00 2 04/07/22 03:30 2 04/07/22 01:30 Diagnostic Findings Laboratory Results WBC 7.79 K/ul (4.8-10.8) 04/07/22 05:56 RBC 4.14 M/uL (4.63-6.08) L 04/07/22 05:56 Hgb 13.1 g/dl (14.0-18.0) L 04/07/22 05:56 Hct 38.5 % (40.1-51.0) L 04/07/22 05:56 MCV 93.0 fL (80.0-100.0) 04/07/22 05:56 MCH 31.6 pg (25.0-34.0) 04/07/22 05:56 MCHC 34.0 g/dL (32.0-36.0) 04/07/22 05:56 RDW Std Deviation 42.7 fL (36.4-46.3) 04/07/22 05:56 RDW Coeff of Estiven 12.4 % (11.5-14.5) 04/07/22 05:56 Plt Count 233 K/uL (130-400) 04/07/22 05:56 MPV 9.7 fL (9.4-12.4) 04/07/22 05:56 Sodium 136 mmol/L (136-145) 04/07/22 05:56 Potassium 3.6 mmol/L (3.5-5.1) 04/07/22 05:56 Chloride 102 mmol/L (98-107) 04/07/22 05:56 Carbon Dioxide 29 mmol/L (21-32) 04/07/22 05:56 Anion Gap 5 (3-11) 04/07/22 05:56 BUN 13 mg/dl (6-23) 04/07/22 05:56 Creatinine 0.65 mg/dl (0.6-1.4) 04/07/22 05:56 Est Cr Clr Drug Dosing 164.0 ml/min 04/07/22 05:56 Est GFR ( Amer) 126.9 ml/min 04/07/22 05:56 Est GFR (Non-Af Amer) 109.5 ml/min 04/07/22 05:56 BUN/Creatinine Ratio 20.0 (10-20) 04/07/22 05:56 Glucose 122 mg/dl (70-99(Fasting)) H 04/07/22 05:56 Calcium 8.6 mg/dl (8.5-10.1) 04/07/22 05:56 SARS-CoV-2, RNA, NAAT NEGATIVE (NEGATIVE) 04/06/22 06:25 Impressions Cervical Spine X-Ray 04/06/22 07:45 FL cervical 2-3V HISTORY: 56 years-old Male ACDF C4-C6 status post cervical spine fusion COMPARISON: None TECHNIQUE: 3 spot fluoroscopic images of the cervical spine were obtained utilizing 12.7 seconds fluoroscopy time FINDINGS: Anterior plate and screw fusion hardware with discectomy changes noted at what appears to be the C4-C6 levels. The visualized hardware appears intact. Radiopaque surgical sponge is noted within the anterior operative bed. Endotracheal tube is present. IMPRESSION: Fluoroscopic assistance as above. ACT 112: Negative or not required by law. The above report was generated using voice recognition software. It may contain grammatical, syntax or spelling errors. Electronically signed by: Romulo Roman M.D. 04/06/2022 10:31 AM Medications Administered Current Inpatient Medications Acetaminophen (Acetaminophen 500 Mg Tab) 1,000 mg PO Q8H PRN PRN Reason: MILD Pain Scale 1,2,3 & Pre PT Stop: 05/06/22 11:42 Al Hydrox/Mg Hydrox/Simethicone (Aluminum/Magnesium Susp 30 Ml Udc) 30 ml PO Q6H PRN PRN Reason: Dyspepsia Stop: 05/06/22 11:42 Amphetamine/Dextroamphetamine (Amphetamine Asp/Sulf/Dextramph 10 Mg Tab) 10 mg PO TODAY@1400 [facility] Stop: 04/20/22 13:59 Last Admin: 04/06/22 14:40 Dose: 10 mg Amphetamine/Dextroamphetamine (Amphetamine Asp/Sulf/Dextramph Er 20 Mg Cap) 20 mg PO TODAY@0800 [facility] Stop: 04/21/22 07:59 Last Admin: 04/07/22 08:32 Dose: 20 mg Amphetamine/Dextroamphetamine (Dextroamphetamine/Amphetamine Er 5 Mg Cap) 5 mg PO TODAY@0800 [facility] Stop: 04/21/22 07:59 Last Admin: 04/07/22 10:21 Dose: 5 mg Bisacodyl (Bisacodyl 10 Mg Supp) 10 mg FL DAILY PRN PRN Reason: Constipation Stop: 05/06/22 11:42 Clonidine HCl (Clonidine Hcl 0.1 Mg Tab) 0.1 mg PO [facility] Stop: 05/06/22 20:59 Last Admin: 04/06/22 21:24 Dose: 0.1 mg Diphenhydramine HCl (Diphenhydramine Capsule 25 Mg Cap) 25 mg PO Q6H PRN PRN Reason: Allergic Rhinitis/Insomnia Stop: 05/06/22 11:42 Epinephrine (Racepinephrine 2.25% Nebu Soln 0.5 Ml Vial) 0.5 ml INH NOW PRN PRN Reason: If stridor present Famotidine (Famotidine 20 Mg Tab) 20 mg PO Q12H PRN PRN Reason: Dyspepsia Stop: 05/06/22 11:42 Hydromorphone HCl (Hydromorphone Inj 0.5 Mg/0.5 Ml Syr) 0.5 mg IV Q3H PRN PRN Reason: MODERATE Pain (Scale 4,5,6) & Pre PT Stop: 04/20/22 11:42 Hydromorphone HCl (Hydromorphone Inj 1 Mg/Ml Syringe) 1 mg IV Q3H PRN PRN Reason: SEVERE Pain (Scale 7,8,9,10) Stop: 04/20/22 11:42 Last Admin: 04/06/22 16:30 Dose: 1 mg Hydroxyzine HCl (Hydroxyzine Hcl 25 Mg Tab) 25 mg PO Q8H PRN PRN Reason: Anxiety Stop: 05/06/22 11:42 Dexamethasone 8 mg/ Syringe 2 mls @ 1 mls/min IV NOW PRN PRN Reason: If stridor present Promethazine HCl 12.5 mg/ (Sodium Chloride) 50.5 mls @ 202 mls/hr IV Q6H PRN PRN Reason: Nausea &/or Vomiting Stop: 05/06/22 11:42 Lorazepam 0.5 mg/ Syringe 0.5 mls @ 2 mls/min IV Q8H PRN PRN Reason: Sedation/Anxiety Stop: 05/06/22 11:42 Dexamethasone 6 mg/ Syringe 1.5 mls @ 1 mls/min IV DAILY PERRY Stop: 04/09/22 09:02 Last Admin: 04/07/22 08:29 Dose: 1 mls/min Influenza Virus Vaccine Quadrival (Do Not Administer Flu Vaccine) 1 each N/A PRN PRN PRN Reason: Notification Stop: 05/06/22 11:42 Lorazepam (Lorazepam 0.5 Mg Tab) 0.5 mg PO Q8H PRN PRN Reason: Sedation/Anxiety Stop: 05/06/22 11:42 Magnesium Hydroxide (Magnesium Hydroxide Susp 30 Ml Udc) 30 ml PO Q24H PRN PRN Reason: Constipation Stop: 05/06/22 11:42 Metoclopramide HCl (Metoclopramide Hcl Inj 5 Mg/Ml 2 Ml Vial) 10 mg IV Q6H PRN PRN Reason: Nausea &/or Vomiting Stop: 05/06/22 11:42 Naloxone HCl (Naloxone Hcl 0.4 Mg/1 Ml Vial/Carp) 0.1 mg IV Q5M PRN PRN Reason: Oversedation/Resp depression Stop: 05/06/22 11:42 Ondansetron HCl (Ondansetron Inj 2 Mg/Ml 2 Ml Vial) 4 mg IV Q6H PRN PRN Reason: Nausea &/or Vomiting Stop: 05/06/22 11:42 Ondansetron HCl (Ondansetron 4 Mg Od Tab) 4 mg PO Q6H PRN PRN Reason: Nausea Stop: 05/06/22 11:42 Oxycodone HCl (Oxycodone Hcl Ir 5 Mg Tab (Immediate Release)) 5 - 10 mg PO Q4H PRN PRN Reason: Pain & Pre PT Stop: 04/20/22 11:42 Last Admin: 04/07/22 05:45 Dose: 10 mg Pneumococcal Polyvalent Vaccine (Do Not Administer Pneumococcal Vaccine) 1 each N/A PRN PRN PRN Reason: Notification Stop: 05/06/22 11:42 Polyethylene Glycol (Polyethylene (Miralax) 17 Gm Pack) 17 gm PO Q6 [facility] Stop: 05/07/22 05:59 Last Admin: 04/07/22 05:45 Dose: 17 gm Senna/Docusate Sodium (Docusate Sodium/Senna 50/8.6mg Tab) 2 tab PO HS PERRY Stop: 05/06/22 20:59 Last Admin: 04/06/22 21:24 Dose: 2 tab Sertraline HCl (Sertraline Hcl 100 Mg Tablet) 100 mg PO QAM [facility] Stop: 05/07/22 08:59 Last Admin: 04/07/22 08:29 Dose: 100 mg Sodium Biphosphate/Sodium Phosphate (Sod Phosphate/Sod Biphosphate Enema 132 Ml Btl) 132 ml FL ONE PRN PRN Reason: Constipation Stop: 05/06/22 11:42 Tramadol HCl (Tramadol Hcl 50 Mg Tablet) 50 - 100 mg PO Q4H PRN PRN Reason: Moderate-Severe pain & Pre PT Stop: 05/06/22 11:42 Trazodone HCl (Trazodone Hcl 50 Mg Tab) 50 mg PO HS PRN PRN Reason: Insomnia Stop: 05/06/22 13:38
== END 2022-04-07 14:33 | disposition home or self-care (01) | DRG 472 ==
LOC: ASU 06:04 → PACUINP 09:16 → INTOOBSV 09:16 → 3E 12:29
DX: M54.12 Radiculopathy, cervical region; Z68.41 Body mass index [BMI] 40.0-44.9, adult; M48.02 Spinal stenosis, cervical region; Z79.899 Other long term (current) drug therapy; F32.A Depression, unspecified; F43.10 Post-traumatic stress disorder, unspecified; F90.9 Attention-deficit hyperactivity disorder, unspecified type; M50.20 Other cervical disc displacement, unspecified cervical region; E66.9 Obesity, unspecified; G47.33 Obstructive sleep apnea (adult) (pediatric)